=== PATIENT | female | born 1960 | race Caucasian/White ===

== ENCOUNTER 2020-11-19 11:55 | Outpatient (REF) | payer OTHER, SELFPAY ==
--- NOTE | ~2020-11-19 | MM_ITS ---
EXAMINATION: MM SCREENING DIGITAL BREAST TOMOSYNTHESIS, BILATERAL CLINICAL INFORMATION: Screening. Asymptomatic. The lifetime risk of breast cancer based on the Tyrer-Cuzick Model is 5%. COMPARISON: Mammography: 11/07/2019, 11/27/2015 TECHNIQUE: Digital breast tomosynthesis is performed in both the craniocaudal and mediolateral oblique views along with computer-aided detection (CAD). Synthesized 2D images are generated from the tomosynthesis. Additional left MLO view is provided. FINDINGS: There are scattered areas of fibroglandular density (ACR BI-RADS breast composition Category b). There are no significant masses, abnormal calcifications, or other abnormalities. Parenchymal pattern is similar to prior studies. Pacemaker generator overlies and obscures upper left axilla on MLO views. MM/MM tomosynthesis screening BI IMPRESSION: No mammographic evidence of malignancy. ASSESSMENT: BI-RADS 2: Benign RECOMMENDATION: Routine annual mammography screening. This patient's information was entered into a reminder system with a target due date for their next mammogram.
== END 2020-11-19 11:56 | disposition home or self-care (01) ==
LOC: HO.MAMMO 11:55
PROVIDERS: Visit Provider Internal Medicine
DX: Z12.31 Encounter for screening mammogram for malignant neoplasm of breast (principal)
CPT/HCPCS: 77063; 77067

== ENCOUNTER → 2021-03-16 12:45 | Outpatient (BNVA) | payer OTHER, SELFPAY | PROVIDERS: Visit Provider Internal Medicine Cardiovascular Disease ==

== ENCOUNTER → 2021-04-23 13:18 | Outpatient (BNVA) | payer OTHER, SELFPAY | PROVIDERS: Referring Provider Internal Medicine; Visit Provider Internal Medicine Cardiovascular Disease | DX: I25.5 Ischemic cardiomyopathy (principal); I25.10 Atherosclerotic heart disease of native coronary artery without angina pectoris; I50.9 Heart failure, unspecified; Z87.891 Personal history of nicotine dependence; Z95.1 Presence of aortocoronary bypass graft; Z95.810 Presence of automatic (implantable) cardiac defibrillator | CPT/HCPCS: 93005 ==

== ENCOUNTER → 2021-05-14 11:40 | Outpatient (REF) | payer OTHER, SELFPAY ==
--- NOTE | 2021-05-14 11:43 | CA_ITS ---
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 Severe LV systolic dysfunction with LVEF of 25-30% with regional wall motion abnormality in LAD territory consistent with prior myocardial infarction, with impaired relaxation filling pattern 2. Normal cardiac valvular Doppler 3. Normal RV systolic pressure 4. No pericardial effusion Findings Left Ventricle Normal left ventricular cavity size. There is normal left ventricular wall thickness. The left ventricular systolic function is severely decreased. The visually estimated ejection fraction is between 25-30%. There is evidence of regional wall motion abnormalities. Spectral Doppler is indicative of an impaired relaxation filling pattern. E/E prime ratio is between 8 and 15 consistent with indeterminate filling pressures. Wall Motion Rest Echo Findings The entire septum, the apex, apical anterior, apical inferior, and mid anterior segments are akinetic. All other scored wall segments showed normal motion. Right Ventricle Normal right ventricular cavity size and systolic function. There is an ICD wire seen in the right ventricle. Atria Both atria are normal in size. There is no evidence of interatrial shunt. Aortic Valve Normal aortic valve structure and function. There is no aortic valve stenosis. There is no aortic valve regurgitation. Mitral Valve Normal mitral valve structure and function. There is trace mitral valve regurgitation. There is no mitral valve stenosis. Tricuspid Valve Likely normal tricuspid valve structure and function. There is trace tricuspid valve regurgitation. The right ventricular systolic pressure is normal. The right ventricular systolic pressure is 23 mmHg. Normal right atrial pressure. There is no evidence of pulmonary hypertension. Great Vessels All visible segments of the aorta are normal in size. The pulmonary artery was not well visualized. Venous The inferior vena cava is normal in size and collapses greater than 50% with inspiration. Pericardium/Pleural There is no evidence of pericardial effusion. Prior Study Comparison No significant change compared to prior study dated: 03/04/2016. Measurements 2D Linear Measurements RVIDd: 1.95 RVIDd Index: 1.12 IVSd: 0.86 0.6-0.9/0.6-1.0 cm LVIDd: 5.33 3.9-5.3/4.2-5.9 cm LVIDd Index: 3.06 2.4-3.2/2.2-3.1 cm/m2 LVIDs: 3.89 2.0-3.6 cm LVPWd: 0.87 0.7-1.1 cm Ao Root: 2.80 2.1-3.5 cm LA Diam: 3.50 2.7-3.8/3.0-4.0 cm LAIDs Index: 2.01 1.5-2.3 cm/m2 LV Mass: 208.03 67-162/88-224 g LV Mass Index: 119.56 43-95/49-115 g/m2 LVOT Diam: 2.00 3.0+(-)1.3 cm 2D Systolic Function EF 4C: 37.50 >55% EF 2C: 44.10 >55% Mitral Valve MV Pk E: 0.66 MV PK A: 0.76 MV Decel Time: 221.00 E/A: 0.90 E'Lateral: 5.44 E'Medial: 7.83 E/E' Med: 8.40 E/E' Lat: 12.10 Aortic Valve AoV Pk Dewey: 1.26 AoV Mn Dewey: 0.88 AoV VTI: 0.27 AoV Pk Grad: 6.00 Aov Mn Grad: 4.00 EVIN Cont.VTI: 2.24 LVOT LVOT Pk Dewey: 0.77 LVOT Mn Dewey: 0.56 LVOT VTI: 0.19 LVOT Pk Grad: 2.00 LVOT Mn Grad: 1.00 LVOT Diam: 2.00 LVOT Area: 3.14 Diastolic Function MV Pk E: 0.66 MV Pk A: 0.76 E/A: 0.90 E'Medial: 7.83 E/E' Med: 8.40 E' Laterial: 5.44 E/E' Lat: 12.10 Right Ventricle TAPSE (mm): 13.00 TVS' Dewey: 9.60 Tricuspid Valve TR Pk Dewey: 2.23 TR Pk Grad: 20.00 RA Press: 3.00 RVSP: 23.00 Great Vessels Aorta Ao Root-2D: 2.80 2.0-3.7 cm Ao Asc: 2.80 2.1-3.4 cm Ao Arch: 2.40 Updated in Other Vendor System with Status of Final Kj Ortiz MD electronically signed on 05/15/2021 11:48:59 AM with status of Final
== END ==
LOC: HO.CARD 11:40
PROVIDERS: PCP Internal Medicine; Visit Provider Internal Medicine Cardiovascular Disease
DX: I25.5 Ischemic cardiomyopathy (principal)
CPT/HCPCS: 93306; Q9957

== ENCOUNTER 2021-05-30 10:04 | Outpatient (REF) | payer OTHER, SELFPAY ==
[2021-05-30 10:50] LABS: Hematocrit 39.8 % (37-47); Hemoglobin 13.4 g/dl (12.0-16.0); Mean Corpuscular HGB Conc 33.7 g/dl (31.0-35.0); Mean Corpuscular Hemoglobin 31.3 pg (27.0-33.0); Mean Platelet Volume 11.7 fL (9.4-12.3); Platelet Count 170 X10*3/uL (160-400); Red Blood Count 4.28 X10*6/uL (4.20-5.50); Red Cell Distribution Width 14.3 % (11.0-16.0); White Blood Count 6.5 X10*3/uL (4.8-10.8)
[2021-05-30 11:05] LABS: Anion Gap 12 (12-20); Blood Urea Nitrogen 12 mg/dL (9-16); Calcium 9.4 mg/dL (8.4-10.2); Carbon Dioxide 26 mmol/L (22-29); Chloride 106 mmol/L (96-108); Cholesterol 199 mg/dL; Estimated Glomerular Filt Rate > 60; Glucose Random 103 mg/dL (60-115); HDL Cholesterol 68 mg/dL; LDL Cholesterol Calculated 120 mg/dl; Potassium 4.8 mmol/L (3.3-5.1); Sodium 139 mmol/L (135-145); Triglycerides 58 mg/dL
== END 2021-05-30 10:05 | disposition home or self-care (01) ==
LOC: HO.LAB 10:04
PROVIDERS: PCP Internal Medicine; Visit Provider Internal Medicine Cardiovascular Disease
DX: I25.10 Atherosclerotic heart disease of native coronary artery without angina pectoris (principal)
CPT/HCPCS: 36415; 80048; 80061; 85027

== ENCOUNTER → 2021-06-04 13:24 | Outpatient (BNVA) | payer OTHER, SELFPAY | PROVIDERS: PCP Internal Medicine; Visit Provider Nurse Practitioner Family ==

== ENCOUNTER → 2021-09-03 12:51 | Outpatient (BNVA) | payer OTHER, SELFPAY | PROVIDERS: PCP Internal Medicine; Referring Provider Internal Medicine; Visit Provider Internal Medicine Cardiovascular Disease ==

== ENCOUNTER 2021-11-26 12:09 | Outpatient (REF) | payer OTHER, SELFPAY ==
--- NOTE | ~2021-11-26 | MM_ITS ---
EXAMINATION: MM SCREENING DIGITAL BREAST TOMOSYNTHESIS, BILATERAL CLINICAL INFORMATION: Screening. Asymptomatic. The lifetime risk of breast cancer based on the Tyrer-Cuzick Model is 5%. COMPARISON: Mammography: 11/19/2020, 11/07/2019, 11/27/2015 TECHNIQUE: Digital breast tomosynthesis is performed in both the craniocaudal and mediolateral oblique views along with computer-aided detection (CAD). Synthesized 2D images are generated from the tomosynthesis. FINDINGS: There are scattered areas of fibroglandular density (ACR BI-RADS breast composition Category b). There are no significant masses, abnormal calcifications, or other abnormalities. Breast tissue composition borders on heterogeneously dense. There is no developing density or interval architectural abnormality. Pacemaker generator overlies and obscures left axilla on MLO view. There are no significant changes. MM/MM tomosynthesis screening BI IMPRESSION: No mammographic evidence of malignancy. ASSESSMENT: BI-RADS 2: Benign RECOMMENDATION: Routine annual mammography screening. This patient's information was entered into a reminder system with a target due date for their next mammogram.
== END 2021-11-26 12:10 | disposition home or self-care (01) ==
LOC: HO.MAMMO 12:09
PROVIDERS: PCP Internal Medicine; Visit Provider Internal Medicine
DX: Z12.31 Encounter for screening mammogram for malignant neoplasm of breast (principal)
CPT/HCPCS: 77063; 77067

== ENCOUNTER 2021-12-31 11:41 | Outpatient (REF) | payer OTHER, SELFPAY ==
[2021-12-31 13:24] LABS: TSH reflex Free T4 2.27 uIU/mL (0.32-4.0)
[2021-12-31 13:41] LABS: Folate > 20.0 ng/mL (> or = 4.0); Vitamin B12 621 pg/mL (200-900)
[2022-01-06 13:51] LABS: Vitamin D 25-OH, D2 <4 ng/mL; Vitamin D 25-OH, D3 24 ng/mL; Vitamin D 25-OH, Total 24 ng/mL (30-100)
== END 2021-12-31 11:42 | disposition home or self-care (01) ==
LOC: HO.LAB 11:41
PROVIDERS: PCP Internal Medicine; Visit Provider Nurse Practitioner Acute Care
DX: E55.9 Vitamin D deficiency, unspecified (principal)
CPT/HCPCS: 36415; 82306; 82607; 82746; 84443

== ENCOUNTER 2022-03-13 07:36 | Outpatient (REF) | payer OTHER, SELFPAY ==
[2022-03-13 08:55] LABS: Alanine Aminotransferase 18 U/L (0-31); Anion Gap 12 (12-20); Aspartate Amino Transferase 20 U/L (5-31); Blood Urea Nitrogen 18 mg/dL (9-16); Calcium 9.6 mg/dL (8.4-10.2); Carbon Dioxide 28 mmol/L (22-29); Chloride 105 mmol/L (96-108); Cholesterol 159 mg/dL; Estimated Glomerular Filt Rate > 60; Glucose Random 96 mg/dL (60-115); HDL Cholesterol 72 mg/dL; LDL Cholesterol Calculated 78 mg/dl; Potassium 4.9 mmol/L (3.3-5.1); Sodium 140 mmol/L (135-145); Triglycerides 48 mg/dL
== END 2022-03-13 07:37 | disposition home or self-care (01) ==
LOC: HO.LAB 07:36
PROVIDERS: PCP Internal Medicine; Visit Provider Nurse Practitioner Family
DX: I25.10 Atherosclerotic heart disease of native coronary artery without angina pectoris (principal); I25.5 Ischemic cardiomyopathy
CPT/HCPCS: 36415; 80048; 80061; 84450; 84460

== ENCOUNTER → 2022-07-30 09:34 | Outpatient (REF) | payer OTHER, SELFPAY ==
--- NOTE | 2022-07-30 09:39 | CA_ITS ---
Transthoracic Echocardiogram Patient (Last, First, Middle): Hamida Venegas, Gender: Female Date of : 1960 Age: 61 Procedure Date: 07/30/2022 Procedure Type: Transthoracic Echocardiogram Location: OP Height: 162.56 cm Weight: 72.58 kg BSA: 1.78 m2 Heart Rate: 55 bpm BP: 120 / 75 mmHg Education Specialist: KIM Referring MD: Kj Ortiz MD Symptoms: I25.5 - Ischemic cardiomyopathy Study Quality: Poor/Contrast ECG Rhythm: Bradycardia Conclusions: - The left ventricular systolic function is severely decreased. The visually estimated ejection fraction is between 15-20%. - The anteroseptal wall, the apical anterior, apical inferior, and mid inferoseptal segments are akinetic. 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 - No obvious valvular pathology seen on this study. Findings Procedure Information Contrast agent, definity, is being given per protocol without apparent complications. Left Ventricle Normal left ventricular cavity size. There is normal left ventricular wall thickness. The left ventricular systolic function is severely decreased. The visually estimated ejection fraction is between 15-20%. There is evidence of regional wall motion abnormalities. Evidence suggests grade I (mild) diastolic dysfunction. No evidence of thrombus. Wall Motion Rest Echo Findings The anteroseptal wall, the apical anterior, apical inferior, and mid inferoseptal segments are akinetic. 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 Right Ventricle Normal right ventricular cavity size. There is low normal right ventricular systolic function. There is an ICD wire seen in the right ventricle. Atria Both atria are normal in size. Aortic Valve There is a normal trileaflet aortic valve. There is no aortic valve stenosis. There is no aortic valve regurgitation. Mitral Valve The mitral valve appears normal. There is no mitral valve regurgitation. There is no mitral valve stenosis. Pulmonic Valve The pulmonic valve is likely normal. Tricuspid Valve There is trace tricuspid valve regurgitation. There is no evidence of pulmonary hypertension. Great Vessels The aortic annulus, sinuses of valsalva, and asc aorta are normal in size. Venous The inferior vena cava is normal in size and collapses greater than 50% with inspiration. Pericardium/Pleural There is no evidence of pericardial effusion. Prior Study Comparison Changes noted compared to prior study dated: 05/14/2021. [place] looks aneurysmal. Recommendations, Care & Conclusions No obvious valvular pathology seen on this study. Measurements 2D Linear Measurements IVSd: 0.97 0.6-0.9/0.6-1.0 cm LVIDd: 4.90 3.9-5.3/4.2-5.9 cm LVIDd Index: 2.75 2.4-3.2/2.2-3.1 cm/m2 LVIDs: 3.94 2.0-3.6 cm LVPWd: 0.79 0.7-1.1 cm LA Diam: 3.60 2.7-3.8/3.0-4.0 cm LAIDs Index: 2.02 1.5-2.3 cm/m2 LV Mass: 185.15 67-162/88-224 g LV Mass Index: 104.01 43-95/49-115 g/m2 LVOT Diam: 2.10 3.0+(-)1.3 cm 2D Systolic Function EF 4C: 34.60 >55% EF 2C: 24.00 >55% EF BiP: 29.70 >55% Mitral Valve MV Pk E: 0.57 MV PK A: 0.72 MV Decel Time: 364.00 E/A: 0.80 E'Lateral: 4.68 E'Medial: 6.85 E/E' Med: 8.30 E/E' Lat: 12.20 PHT: 107.00 MVA PHT: 2.06 Decel Sullivan: 1.56 Aortic Valve AoV Pk Dewey: 1.05 AoV Mn Dewey: 0.78 AoV VTI: 0.25 AoV Pk Grad: 4.00 Aov Mn Grad: 3.00 EVIN Cont.VTI: 2.23 LVOT LVOT Pk Dewey: 0.76 LVOT Mn Dewey: 0.53 LVOT VTI: 0.16 LVOT Pk Grad: 2.00 LVOT Mn Grad: 1.00 LVOT Diam: 2.10 LVOT Area: 3.46 Diastolic Function MV Pk E: 0.57 MV Pk A: 0.72 E/A: 0.80 E'Medial: 6.85 E/E' Med: 8.30 E' Laterial: 4.68 E/E' Lat: 12.20 Right Ventricle TAPSE (mm): 18.50 TVS' Dewey: 8.43 Tricuspid Valve TR Pk Dewey: 1.59 TR Pk Grad: 10.00 RA Press: 3.00 RVSP: 13.00 Great Vessels Aorta Sinus of Valsalva: 3.20 2.0-3.5 cm Ao Asc: 3.10 2.1-3.4 cm Pulmonary Valve PV Pk Dewey: 0.68 Peak PV Grad: 2.00 Updated in Other Vendor System with Status of Final Paco Herrera MD electronically signed on 07/31/2022 1:04:35 PM with status of Final
== END ==
LOC: HO.CARD 09:34
PROVIDERS: PCP Internal Medicine; Visit Provider Internal Medicine Cardiovascular Disease
DX: I25.5 Ischemic cardiomyopathy (principal)
CPT/HCPCS: 93306; Q9957

== ENCOUNTER → 2022-09-15 12:35 | Outpatient (BNVA) | payer OTHER, SELFPAY | PROVIDERS: PCP Internal Medicine; Referring Provider Internal Medicine; Visit Provider Internal Medicine Cardiovascular Disease | DX: Z45.02 Encounter for adjustment and management of automatic implantable cardiac defibrillator (principal); I25.5 Ischemic cardiomyopathy; I25.10 Atherosclerotic heart disease of native coronary artery without angina pectoris | CPT/HCPCS: 93005 ==

== ENCOUNTER 2022-12-02 12:06 | Outpatient (REF) | payer OTHER, SELFPAY ==
--- NOTE | ~2022-12-02 | MM_ITS ---
EXAMINATION: MM SCREENING DIGITAL BREAST TOMOSYNTHESIS, BILATERAL CLINICAL INFORMATION: Screening. Asymptomatic. The lifetime risk of breast cancer based on the Tyrer-Cuzick Model is 9.5%. COMPARISON: Mammography: November 26, 2021 and studies dating back to November 27, 2015 TECHNIQUE: Digital breast tomosynthesis is performed in both the craniocaudal and mediolateral oblique views along with computer-aided detection (CAD). Synthesized 2D images are generated from the tomosynthesis. FINDINGS: The breasts are heterogeneously dense, which may obscure small masses (ACR BI-RADS breast composition Category c). There are no significant masses, abnormal calcifications, or other abnormalities. MM/MM tomosynthesis screening BI IMPRESSION: No significant changes from prior exam. ASSESSMENT: BI-RADS 1: Negative RECOMMENDATION: Routine annual mammography screening. This patient's information was entered into a reminder system with a target due date for their next mammogram.
== END 2022-12-02 12:07 | disposition home or self-care (01) ==
LOC: HO.MAMMO 12:06
PROVIDERS: Visit Provider Internal Medicine
DX: Z12.31 Encounter for screening mammogram for malignant neoplasm of breast (principal)
CPT/HCPCS: 77063; 77067

== ENCOUNTER 2023-04-11 12:22 | Outpatient (AMB) | payer OTHER, SELFPAY ==
--- NOTE | 2023-04-11 12:40 | A.OFFVIS_ITS ---
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 She is a 62 woman says has lot of stress at work and related that she is not sleeping well. She is having increasing fatigue and increasing exertional shortness of breath. No exertional chest pain. Denies any orthopnea, PND. She thinks all her symptoms are probably related to stress and she is getting panic attacks because of it. She is taking all her medications. She denies any palpitations, lightheadedness, syncope, ICD discharge. [facility]LY [facility] Medical History CAD (coronary artery disease) ICD (implantable cardioverter-defibrillator) in place Ischemic cardiomyopathy Primary insomnia Surgical History History of section History of nasal surgery History of tubal ligation Hx of CABG Family History Father Lung cancer Stroke Mother Diabetes Hypertension Maternal Aunt Cervical cancer Sister Uterine cancer Social History Housing: Apartment Alcohol intake: current Alcohol intake frequency: holidays/special occasions only Patient Tobacco Use Status: Former Tobacco user Second Hand Smoke Exposure: Yes service: No Current occupational status: employed Cognitive needs: No Hearing needs: No Vision needs: Yes Review of Systems Const Denies chills, Denies fatigue, Denies fever(s), Denies frequent falls, Denies weakness, Denies weight gain and Denies weight loss ENT Denies dizziness Card Denies chest pain, Denies leg edema, Denies lightheadedness, Denies palpitations, Denies dyspnea, Denies dyspnea on exertion, Denies orthopnea and Denies other (loss of consciousness) Resp Denies cough, Denies dyspnea and Denies dyspnea on exertion GI Denies hematochezia and Denies change in stool character Musc Denies abnormal gait, Denies muscle weakness, Denies numbness, Denies radiating pain into limb and Denies tingling Neuro Denies Abnormal speech present, Denies abnormal gait, Denies dizziness, Denies frequent falls, Denies numbness, Denies tingling and Denies weakness Endo Denies fatigue and Denies palpitations Physical Exam Vital Signs: Last Vital Signs Pulse 74 04/11/23 12:41 BP 110/70 04/11/23 12:41 BMI result Body Mass Index 29.5 Const General: cooperative, comfortable, no acute distress, alert, awake, Physically active and well groomed Orientation/consciousness: patient oriented x3 Neck Neck: Yes trachea midline, Yes supple and Yes no JVD Carotids: no bruits Chest Chest palpation & inspection: normal inspection of the chest and other (Well- healed sternotomy scar) Resp Effort & Inspection: normal respiratory effort Auscultation: clear to auscultation bilaterally Cardio Jugular venous distension: no JVD Palpation: abnormal PMI displaced PMI Rate: regular rate Rhythm: regular rhythm Heart sounds: S1 normal heart sound present, S2 normal heart sound present, no click, no gallops, no murmurs, no rubs and Other heart sounds present (Soft S4) Peripheral pulses: Peripheral pulses 2+ throughout GI Auscultation: normal bowel sounds Skin General skin exam: no rashes or lesions noted Neuro General: patient oriented x3 and no focal motor deficits Speech: No Abnormal speech present Extrem General: Yes no clubbing, cyanosis or edema Office Procedures Cardiac Device Check Cardiac Device Check Details: Single-chamber [employer] ICD in place. Programmed in VVI at 40 beats per minute. Pacing thresholds excellent. Pacing and shock lead impedance is stable. Ventricular sensing is excellent. One episode of nonsustained ventricular tachycardia noted. Battery life is at about 4 and half years [id number] Cardiac Device Check, single lead implantable defibrillator Procedure code (CPT) selection complete Assessment & Plan Assessment & Plan (1) SOB (shortness of breath) on exertion: Code(s): R06.02 - Shortness of breath Plan: Shortness of breath exertion which is new onset last 6 months without any overt signs of heart failure. Probably related to increased stress and lack of sleep and fatigue and deconditioning. However given her prior cardiac history will suggest exercise myocardial perfusion imaging to evaluate for graft patency. This will be done in near future. Further treatment based on the finding. (2) Ischemic cardiomyopathy: Code(s): I25.5 - Ischemic cardiomyopathy Plan: Severe ischemic cardiomyopathy without overt symptoms of heart failure. NYHA class 2 symptoms. Will discontinue lisinopril and switch her to valsartan therapy for a week and transition her to Entresto therapy. Continue metoprolol therapy. Both for neurohormonal modulation. Signs and symptoms of heart failure were discussed. Advised to call me with worsening symptoms. Importance of neurohormonal modulation was discussed. (3) CAD (coronary artery disease): Code(s): I25.10 - Atherosclerotic heart disease of [place] coronary artery without angina pectoris Plan: CAD with remote coronary bypass grafting. Currently having increasing symptoms of shortness of breath. Follow-up with stress myocardial perfusion imaging as above. Continue aspirin therapy. Continue aggressive blood pressure control. Continue high-intensity statin therapy with target goal LDL less than 70 mg/dL. Advised to maintain activity level and weight loss program. (4) ICD (implantable cardioverter-defibrillator) in place: Code(s): Z95.810 - Presence of automatic (implantable) cardiac defibrillator Plan: ICD in place for primary prevention. Working well. Reprogrammed for adequate function. Follow remotely in 3 months and follow up in the clinic in 6 months time. Follow-up remotely every month for heart failure. Will follow up in the clinic 6 months time, sooner p.r.n.. Thank you for allowing me to partake in her care Orders: Orders CA stress test Today I25.5 - Ischemic cardiomyopathy, R06.02 - Shortness of breath NM cardiolite stress test 2 Weeks R07.9 - Chest pain, unspecified Coding Level of Care Code Est Pt Level 4 (79181) Diagnoses SOB (shortness of breath) on exertion R06.02 Ischemic cardiomyopathy I25.5 CAD (coronary artery disease) I25.10 ICD (implantable cardioverter-defibrillator) in place Z95.810 CPT Codes Cardiac Device Check - Cardiac Device 4: 50198-[id number] Cardiac Device Check, single lead implantable defibrillator ([id number])
[2023-04-11 12:41] VITALS: BP 110/70; PULSE 74; BMI 29.5
== END 2023-04-11 13:01 | disposition home or self-care (01) ==
PROVIDERS: Visit Provider Internal Medicine Cardiovascular Disease
DX: R06.02 Shortness of breath (principal); I25.5 Ischemic cardiomyopathy; I25.10 Atherosclerotic heart disease of native coronary artery without angina pectoris; Z95.810 Presence of automatic (implantable) cardiac defibrillator
CPT/HCPCS: 93282; 99214

== ENCOUNTER → 2023-04-11 12:22 | Outpatient (BNVA) | payer OTHER, SELFPAY | PROVIDERS: Visit Provider Internal Medicine Cardiovascular Disease ==

== ENCOUNTER 2023-05-12 13:18 | Outpatient (REF) | payer OTHER, SELFPAY ==
[2023-05-12 14:53] LABS: Anion Gap 9 (12-20); Blood Urea Nitrogen 13 mg/dL (9-16); Calcium 9.5 mg/dL (8.4-10.2); Carbon Dioxide 27 mmol/L (22-29); Chloride 107 mmol/L (96-108); Estimated Glomerular Filt Rate > 60; Glucose Random 98 mg/dL (60-115); Sodium 139 mmol/L (135-145)
== END 2023-05-12 13:19 | disposition home or self-care (01) ==
LOC: HO.LAB 13:18
PROVIDERS: PCP Internal Medicine; Visit Provider Internal Medicine Cardiovascular Disease
DX: I25.5 Ischemic cardiomyopathy (principal)
CPT/HCPCS: 36415; 80048

== ENCOUNTER → 2023-06-03 08:32 | Outpatient (REF) | payer OTHER, SELFPAY ==
--- NOTE | ~2023-06-03 | NM_ITS ---
Myocardial perfusion study Indication: Chest pain to evaluate for myocardial ischemia Technique: The patient was brought in for a Lexiscan perfusion study on 06/03/2023. Patient performed low-level exercise and was injected 0.4 mg of Lexiscan intravenously. Within a minute of injection, 25 mCi of sestamibi was given intravenously. Images were obtained using the SPECT gamma camera interlaced with the gating device. Images were obtained in supine position. Resting perfusion study was performed on 06/06/2023. Patient was administered 25 mCi of sestamibi intravenously at rest. Images were then obtained in supine position. Images obtained with and without CT attenuation. Total DLP 86 mGy-cm. Images were processed with the software and compared side to side in short axis, horizontal long axis and vertical long axis views. Findings: The stress perfusion study showed non attenuated images show absent uptake in the apex, mid and distal anteroseptal, inferoapical rutherford of the LV myocardium and severely reduced uptake in the distal septum, distal anterior, moderately reduced uptake in the inferoseptum as well as mildly reduced uptake in the basal and mid anterior wall of the LV myocardium.. Images x-ray showed improved uptake in the basal and mid anterior wall of the LV myocardium. Remainder of the LV myocardium uptake is similar to in non attenuated images.. The gated study shows reduced LV systolic function with calculated LVEF of 25%. LV cavity is mildly to moderately dilated size. The gated study shows diffusely reduced wall thickening and contraction of all segments with absent uptake in the distal anterior, apical as well as the distal septum and lateral wall of the LV myocardium.. Resting study shows non attenuated images show improved uptake in the basal and mid anterior wall and minimally as well as minimally improved uptake in the inferoseptal wall of the LV myocardium. Attenuated corrected images show no changes in perfusion pattern except for the borderline area of the mid anterior wall.. Gating at rest reveals, apical, inferoapical as well as anteroapical and distal septal wall akinesis with ejection fraction at 22%. The findings are consistent with large territory of myocardial infarction of the distal anterior, apical, inferoapical, distal anteroseptal as well as distal septal wall of the LV myocardium with minimal emerson-infarct ischemia from mid anterior wall.. NM/NM cardiolite stress test Impression: 1. Myocardial perfusion imaging study shows large territory infarct in LAD territory with minimal emerson-infarct ischemia 2. Gated LVEF is 25% 3. Transient ischemic dilatation not present but LV cavity is dilated EKG is nondiagnostic for ischemia
--- NOTE | 2023-06-03 08:35 | CA_ITS ---
Acquisition Time: 2023-06-03 08:47:07 Total Exercise Time: 00:01:17 Test Indications: SOB Medications: SEE H Protocol: MURPHY Max HR: 125 BPM 80% of Pred: 156 BPM Max BP: 160/056 mmHG Max Work Load: 3.3 METS Exercise stress test exercise 1 min 17 sec of Murphy protocol achieving 78% MPHR, with request to stop due to leg weakness, without anginal symptoms, with isolated PVCs, with normotensive response to exercise, with nondiagnositic EKGs. Test changed to pharmacolgoical stress test with Lexiscan injection, while sitting and kicking her legs, without anginal symptoms, without arrhythmias, with normotensive response to injection, with nondiagnositic EKGs. Aminophylline 75mg IVP given to reverse Lexiscan. Nuclear images pending. Test reviewed with Dr. Ortiz. Some pseudo-normalization of T waves noted. Referred By: Kj Ortiz Overread By: RAGHAVENDRA FERNANDEZ
== END ==
LOC: HO.CARD 08:32
PROVIDERS: PCP Internal Medicine; Visit Provider Internal Medicine Cardiovascular Disease
DX: R07.9 Chest pain, unspecified (principal); I25.5 Ischemic cardiomyopathy; R06.02 Shortness of breath
CPT/HCPCS: 78452; 93017; A9500; J0280; J2785

== ENCOUNTER → 2023-06-03 08:51 | Outpatient (BNV) | payer OTHER, SELFPAY | PROVIDERS: PCP Internal Medicine; Visit Provider Internal Medicine Cardiovascular Disease | DX: I25.10 Atherosclerotic heart disease of native coronary artery without angina pectoris (principal) | CPT/HCPCS: 78452; 93016; 93018 ==

== ENCOUNTER 2023-10-10 12:48 | Outpatient (AMB) | payer OTHER, SELFPAY ==
--- NOTE | 2023-10-10 12:48 | MHC.OFFVIS ---
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 She has been doing well overall. She has currently not working. However on her med list she is currently off her beta-kb and statin for unclear reasons. She says that the pharmacy did not refill. She is taking other medications. She denies any prolonged palpitations or lightheadedness. Denies any exertional chest pain. Does complain of tiredness and fatigue. However denies any worsening shortness of breath, orthopnea, PND, leg edema. No ICD discharge. [facility] Medical History ICD (implantable cardioverter-defibrillator) in place Ischemic cardiomyopathy CAD (coronary artery disease) Primary insomnia Surgical History Hx of CABG History of tubal ligation History of nasal surgery History of section Family History Father Lung cancer Stroke Mother Diabetes Hypertension Maternal Aunt Cervical cancer Sister Uterine cancer Social History Housing: Apartment Alcohol intake: current Alcohol intake frequency: holidays/special occasions only Patient Tobacco Use Status: Former Tobacco user Second Hand Smoke Exposure: Yes service: No Current occupational status: employed Cognitive needs: No Hearing needs: No Vision needs: Yes Review of Systems Const Denies chills, Denies fatigue, Denies fever(s), Denies frequent falls, Denies weakness, Denies weight gain and Denies weight loss ENT Denies dizziness Card Denies chest pain, Denies leg edema, Denies lightheadedness, Denies palpitations, Denies dyspnea, Denies dyspnea on exertion, Denies orthopnea and Denies other (loss of consciousness) Resp Denies cough, Denies dyspnea and Denies dyspnea on exertion GI Denies hematochezia and Denies change in stool character Musc Denies abnormal gait, Denies muscle weakness, Denies numbness, Denies radiating pain into limb and Denies tingling Neuro Denies Abnormal speech present, Denies abnormal gait, Denies dizziness, Denies frequent falls, Denies numbness, Denies tingling and Denies weakness Endo Denies fatigue and Denies palpitations Physical Exam Vital Signs: Last Vital Signs Pulse 70 10/10/23 12:49 BP 110/72 10/10/23 12:49 BMI result Body Mass Index 29.5 Const General: cooperative, comfortable, no acute distress, alert, awake, Physically active and well groomed Orientation/consciousness: patient oriented x3 Neck Neck: Yes trachea midline, Yes supple and Yes no JVD Carotids: no bruits Chest Chest palpation & inspection: normal inspection of the chest and other (Well-healed sternotomy scar) Resp Effort & Inspection: normal respiratory effort Auscultation: clear to auscultation bilaterally Cardio Jugular venous distension: no JVD Palpation: abnormal PMI displaced PMI Rate: regular rate Rhythm: regular rhythm Heart sounds: S1 normal heart sound present, S2 normal heart sound present, no click, no gallops, no murmurs, no rubs and Other heart sounds present (Soft S4) Peripheral pulses: Peripheral pulses 2+ throughout GI Auscultation: normal bowel sounds Skin General skin exam: no rashes or lesions noted Neuro General: patient oriented x3 and no focal motor deficits Speech: No Abnormal speech present Extrem General: Yes no clubbing, cyanosis or edema Office Procedures Cardiac Device Check Cardiac Device Check Details: Single-chamber [place] [employer] ICD in place. Programmed in VVI at 40 beats per minute. Ventricular pacing thresholds excellent. Ventricular sensing is excellent. Pacing and shock lead impedance is stable. Battery life is at 4 years. Few high ventricular rate episode noted, from EGM a suggestive of possibly supraventricular origin. 27587-NF Cardiac Device Check, single lead implantable defibrillator Procedure code (CPT) selection complete EKG Details: EKG shows normal sinus rhythm with Q-wave from V1 to V5 suggestive of anterior myocardial infarction with T-wave inversion consistent with [place] related repolarization abnormality 48710-[id number], Complete Assessment & Plan Assessment & Plan (1) Ischemic cardiomyopathy: Code(s): I25.5 - Ischemic cardiomyopathy Plan: Severe ischemic cardiomyopathy. Importance of medical therapy was discussed. Will restart carvedilol 3.125 mg b.i.d.. Advised to monitor blood pressure at home. Continue Entresto therapy. Goal of neurohormonal modulation was discussed especially to prevent further worsening of her cardiac function and development of heart failure. She understands and agrees. Echocardiogram in near future will be pursued. (2) CAD (coronary artery disease): Code(s): I25.10 - Atherosclerotic heart disease of [place] coronary artery without angina pectoris Plan: CAD with large LAD territory myocardial infarction. She is also currently off statin therapy. Importance of statin therapy was discussed with her as well. Resume high-intensity statin therapy with rosuvastatin 40 mg daily. Follow-up lipid panel in 2 months time. Continue low-dose aspirin therapy for life. (3) ICD (implantable cardioverter-defibrillator) in place: Code(s): Z95.810 - Presence of automatic (implantable) cardiac defibrillator Plan: ICD in place for primary prevention. ICD is working well. Reprogrammed for adequate function. Will follow in the clinic in 6 months time. Thank you for allowing me to partake in the care. Follow up in the clinic in 6 months time Orders: Orders CA echo transthoracic complete Today I25.5 - Ischemic cardiomyopathy Lipid Panel 2 Months I25.10 - Atherosclerotic heart disease of [place] coronary artery without angina pectoris Basic Metabolic Panel 2 Months I25.5 - Ischemic cardiomyopathy Medications: New rosuvastatin (Crestor) 40 mg PO DAILY 30 tabs 6RF I25.5 - Ischemic cardiomyopathy carvedilol (Coreg) must administer with a meal/food 3.125 mg PO BID 60 tabs 6RF I25.5 - Ischemic cardiomyopathy Coding Level of Care Code Est Pt Level 4 (85223) Diagnoses Ischemic cardiomyopathy I25.5 CAD (coronary artery disease) I25.10 ICD (implantable cardioverter-defibrillator) in place Z95.810 CPT Codes Cardiac Device Check - Cardiac Device 4: [id number] Cardiac Device Check, single lead implantable defibrillator ([id number]) EKG - CPT: 52691-Wjyqszkpglgdtdapj, Complete ([id number])
[2023-10-10 12:49] VITALS: BP 110/72; PULSE 70; BMI 29.5
== END 2023-10-10 13:08 | disposition home or self-care (01) ==
LOC: HO.HCS 12:48
PROVIDERS: PCP Internal Medicine; Visit Provider Internal Medicine Cardiovascular Disease
DX: I25.5 Ischemic cardiomyopathy (principal); I25.10 Atherosclerotic heart disease of native coronary artery without angina pectoris; Z95.810 Presence of automatic (implantable) cardiac defibrillator
CPT/HCPCS: 93282; 99214

== ENCOUNTER → 2023-10-10 12:48 | Outpatient (BNVA) | payer OTHER, SELFPAY | PROVIDERS: PCP Internal Medicine; Visit Provider Internal Medicine Cardiovascular Disease | DX: I25.5 Ischemic cardiomyopathy (principal); I25.10 Atherosclerotic heart disease of native coronary artery without angina pectoris; Z79.82 Long term (current) use of aspirin; Z79.899 Other long term (current) drug therapy; Z45.02 Encounter for adjustment and management of automatic implantable cardiac defibrillator | CPT/HCPCS: 93005 ==

== ENCOUNTER → 2023-11-01 10:58 | Outpatient (REF) | payer OTHER, SELFPAY ==
--- NOTE | 2023-11-01 11:08 | CA_ITS ---
Transthoracic Echocardiogram Patient (Last, First, Middle): Hamida Calabrese, Gender: Female Date of : 1960 Age: 63 Procedure Date: 11/01/2023 Procedure Type: Transthoracic Echocardiogram Location: OP Height: 162.56 cm Weight: 74.39 kg BSA: 1.80 m2 Heart Rate: bpm BP: 110 / 70 mmHg Back Tender Paper Machine: HELGA Referring MD: Kj Ortiz MD Symptoms: I25.5 - Ischemic cardiomyopathy Study Quality: Adequate with contrast Conclusions: - The left ventricular systolic function is severely decreased. The calculated ejection fraction is 28% by biplane method. - The apical inferior, apical septum, mid inferoseptal, and mid anteroseptal segments are akinetic. 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 - No obvious valvular pathology seen on this study. Findings Procedure Information Contrast agent, definity, is being given per protocol without apparent complications. Left Ventricle Mildly increased left ventricular cavity size. There is normal left ventricular wall thickness. The left ventricular systolic function is severely decreased. The calculated ejection fraction is 28% by biplane method. There is evidence of regional wall motion abnormalities. Evidence suggests grade I (mild) diastolic dysfunction. Wall Motion Rest Echo Findings The apical inferior, apical septum, mid inferoseptal, and mid anteroseptal segments are akinetic. 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 Right Ventricle Normal right ventricular cavity size. There is mildly decreased right ventricular systolic function. Atria Both atria are normal in size. Aortic Valve There is a normal trileaflet aortic valve. There is no aortic valve stenosis. There is no aortic valve regurgitation. Mitral Valve The mitral valve appears normal. There is no mitral valve regurgitation. There is no mitral valve stenosis. Pulmonic Valve The pulmonic valve is likely normal. Tricuspid Valve There is trace tricuspid valve regurgitation. There is no evidence of pulmonary hypertension. Great Vessels The asc aorta is normal in size. Venous The inferior vena cava is normal in size and collapses greater than 50% with inspiration. Pericardium/Pleural There is a trivial pericardial effusion. Prior Study Comparison No significant change compared to prior study dated: 07/30/2022. Recommendations, Care & Conclusions No obvious valvular pathology seen on this study. Measurements 2D Linear Measurements IVSd: 0.87 0.6-0.9/0.6-1.0 cm LVIDd: 5.71 3.9-5.3/4.2-5.9 cm LVIDd Index: 3.17 2.4-3.2/2.2-3.1 cm/m2 LVIDs: 4.64 2.0-3.6 cm LVPWd: 0.95 0.7-1.1 cm LA Diam: 2.90 2.7-3.8/3.0-4.0 cm LAIDs Index: 1.61 1.5-2.3 cm/m2 LV Mass: 251.13 67-162/88-224 g LV Mass Index: 139.52 43-95/49-115 g/m2 LVOT Diam: 2.30 3.0+(-)1.3 cm 2D Systolic Function EF 4C: 18.50 >55% EF 2C: 35.10 >55% EF BiP: 27.80 >55% Mitral Valve MV Pk E: 0.63 MV PK A: 0.75 MV Decel Time: 213.00 E/A: 0.80 E'Lateral: 5.44 E'Medial: 5.11 E/E' Med: 12.40 E/E' Lat: 11.70 PHT: 62.00 MVA PHT: 3.55 Decel [place]: 2.98 Aortic Valve AoV Pk Dewey: 1.09 AoV Mn Dewey: 0.79 AoV VTI: 0.28 AoV Pk Grad: 5.00 Aov Mn Grad: 3.00 EVIN Cont.VTI: 2.95 LVOT LVOT Pk Dewey: 0.82 LVOT Mn Dewey: 0.55 LVOT VTI: 0.20 LVOT Pk Grad: 3.00 LVOT Mn Grad: 1.00 LVOT Diam: 2.30 LVOT Area: 4.15 Diastolic Function MV Pk E: 0.63 MV Pk A: 0.75 E/A: 0.80 E'Medial: 5.11 E/E' Med: 12.40 E' Laterial: 5.44 E/E' Lat: 11.70 Right Ventricle TAPSE (mm): 15.20 TVS' Dewey: 9.46 Tricuspid Valve TR Pk Dewey: 1.80 TR Pk Grad: 13.00 RA Press: 3.00 RVSP: 16.00 Great Vessels Aorta Sinus of Valsalva: 3.29 2.0-3.[address] [place]: 2.66 1.7-3.4 cm Ao Asc: 2.90 2.1-3.4 cm Updated in Other Vendor System with Status of Final Paco Herrera MD electronically signed on 11/03/2023 12:18:17 PM with status of Final
== END ==
LOC: HO.CARD 10:58
PROVIDERS: PCP Internal Medicine; Visit Provider Internal Medicine Cardiovascular Disease
DX: I25.5 Ischemic cardiomyopathy (principal)
CPT/HCPCS: 93306; Q9957

== ENCOUNTER → 2023-11-01 11:08 | Outpatient (BNV) | payer OTHER, SELFPAY | PROVIDERS: PCP Internal Medicine; Visit Provider Internal Medicine | DX: I25.5 Ischemic cardiomyopathy (principal) | CPT/HCPCS: 93306 ==

== ENCOUNTER 2023-12-08 11:54 | Outpatient (REF) | payer OTHER, SELFPAY ==
--- NOTE | ~2023-12-08 | MM_ITS ---
EXAMINATION: MM SCREENING DIGITAL BREAST TOMOSYNTHESIS, BILATERAL CLINICAL INFORMATION: Screening. Asymptomatic. COMPARISON: Mammography: 02/01/2023, 11/26/2021, 11/19/2020, 11/07/2019, 11/27/2015. TECHNIQUE: Digital breast tomosynthesis is performed in both the craniocaudal and mediolateral oblique views along with computer-aided detection (CAD). Synthesized 2D images are generated from the tomosynthesis. FINDINGS: The breasts are heterogeneously dense, which may obscure small masses (ACR BI-RADS breast composition Category c). Pacemaker obscures a portion of the left axilla on the left MLO. There are no suspicious masses, suspicious grouped calcifications, or areas of architectural distortion in either breast. The parenchymal pattern is stable from prior exams. No skin abnormalities. MM/MM tomosynthesis screening BI IMPRESSION: No mammographic evidence of malignancy. ASSESSMENT: BI-RADS BI-RADS 2 - Benign Findings RECOMMENDATION: Routine annual mammography screening. 1 year F/U This examination should not preclude the clinical evaluation of a suspicious palpable abnormality. This patient's information was entered into a reminder system with a target due date for their next mammogram.
== END 2023-12-08 11:55 | disposition home or self-care (01) ==
LOC: HO.MAMMO 11:54
PROVIDERS: PCP Internal Medicine; Visit Provider Internal Medicine
DX: Z12.31 Encounter for screening mammogram for malignant neoplasm of breast (principal)
CPT/HCPCS: 77063; 77067

== ENCOUNTER → 2023-12-08 12:00 | Outpatient (BNV) | payer OTHER, SELFPAY | PROVIDERS: PCP Internal Medicine; Visit Provider Radiology Diagnostic Radiology | DX: Z12.31 Encounter for screening mammogram for malignant neoplasm of breast (principal) | CPT/HCPCS: 77063; 77067 ==

== ENCOUNTER → 2024-01-03 14:22 | Outpatient (BNVA) | payer SELFPAY | PROVIDERS: PCP Internal Medicine; Visit Provider Physician Assistant Medical | DX: Z02.1 Encounter for pre-employment examination (principal); R76.11 Nonspecific reaction to tuberculin skin test without active tuberculosis ==

== ENCOUNTER 2024-02-23 12:52 | Outpatient (AMB) | payer OTHER, SELFPAY ==
--- NOTE | 2024-02-23 12:57 | A.OFFPC_ITS ---
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 Accompanied by: Self / Same As Patient Allergies No Known Allergies Allergy (Verified 02/23/24 13:26) Medication List - Last Reconciled 02/23/24 by Rosalie Juarez MD aspirin (Adult Low Dose Aspirin) 81 mg PO DAILY carvedilol (Coreg) 3.125 mg PO BID ddfpzsot-hdo-uswn-FA-vit K-lut 8 mg iron-400 mcg-50 mcg (Centrum Silver Women) 1 tab PO DAILY rosuvastatin (Crestor) 40 mg PO DAILY Tobacco use date assessed: 02/23/24 Fall risk assessment: No Falls in past year Last assessed Fall Risk: 02/23/24 Dental Screening Dental Screen Date: 02/23/24 Did you have a dental visit in the last 12 months?: No Did you have a dental problem in the last 6 months where you did not have access to dental care?: No Was dental information given to patient?: Patient has dentist HPI HPI Comments History of Present Illness Details This is a 63-year-old female with chronic systolic congestive heart failure that comes for her physical exam. Last echocardiogram was 11/15/2023 showing ejection fraction of 28%. She said she has not able to afford Entresto. I recommend to make financial adjustments to get it. Last mammogram was 12/14/2023 and was normal. Last colonoscopy was 2014 and due to family history they recommended to be repeated in 2019. Denies any chest pain or shortness on breath. Bone DXA scan was ordered. No need for Pap smear due to age. [facility] Medical History (Updated 02/23/24 @ 13:26 by Rosalie Juarez MD) Nonsustained ventricular tachycardia ICD (implantable cardioverter-defibrillator) in place Ischemic cardiomyopathy CAD (coronary artery disease) Primary insomnia Surgical History Hx of CABG History of tubal ligation History of nasal surgery History of section Family History (Updated 02/23/24 @ 12:59 by BOO Daly) Father Lung cancer Stroke Mother Diabetes Hypertension Maternal Aunt Cervical cancer Sister Uterine cancer Social History Housing: Apartment Alcohol intake: current Alcohol intake frequency: holidays/special occasions only Patient Tobacco Use Status: Former Tobacco user e-Cigarette/Vaping Use: Never Used Second Hand Smoke Exposure: Yes service: No Current occupational status: unemployed Cognitive needs: No Hearing needs: No Vision needs: Yes Questionnaire PHQ-9 Over the last 2 weeks, how often have you been bothered by any of the following problems? 1. Little interest or pleasure in doing things: not at all 2. Feeling down, depressed, or hopeless: several days 3. Trouble falling or staying asleep, or sleeping too much: several days 4. Feeling tired or having little energy: not at all 5. Poor appetite or overeating: not at all 6. Feeling bad about yourself - or that you are a failure or have let yourself or your family down: not at all 7. Trouble concentrating on things, such as reading the newspaper or watching television: not at all 8. Moving or speaking so slowly that other people could have noticed. Or the opposite - being so fidgety or restless that you have been moving around a lot more than usual: not at all 9. Thoughts that you would be better off or of hurting yourself in some way: not at all Total score: 2 Depression Screening Interpretation: Positive Depression Screening Follow-up: Existing condition and Follow-up Visit Requested Depression Screening Done: Yes 19574 - PHQ-9 Billing: Yes Source: Developed by Drs. Augusto Prakash, Shanti Huizar, William Bennett and colleagues, with an educational gonzales from [employer] Thrive Questionnaire Date Thrive assessed: 02/23/24 I am a: Patient What is your living situation today?: I have a steady place to live Within the past 12 months, did the food you bought not last and you didn't have the money to get more?: Never true Within the past 12 months, did you worry whether your food would run out before you got money to buy more?: Never true Do you have trouble paying for medicines?: No Do you have trouble getting transportation to medical appointments?: No Do you have trouble paying your heating and electricity bill?: No Do you have trouble taking care of your child, family member or friend?: No Do you have trouble with day-to-day activities such as bathing, preparing meals, shopping, managing finances, etc.?: No Are you currently unemployed and looking for a job?: No Are you interested in more education?: No Please select the resources that you would like help with: None Currently or been in a relationship where the following occur: no concerns reported THRIVE Score: 0 AUDIT C Alcohol Use Questionnaire (AUDIT-C) 1. How often do you have a drink containing alcohol?: Monthly or less 2. How many drinks containing alcohol do you have on a typical day when you are drinking?: 1 or 2 3. How often do you have six or more drinks on one occasion?: Never Total Score: 1 Score Reviewed/Action Taken: No SUZAN-7 AMB Questionnaire SUZAN-7 Date SUZAN - 7 assessed: 02/23/24 Feeling nervous, anxious, or on edge: 1 = Several days Not being able to stop or control worryin = Not at all Worrying too much about different things: 1 = Several days Trouble relaxin = Not at all Being so restless that it is hard to sit still: 0 = Not at all Becoming easily annoyed or irritable: 0 = Not at all Feeling afraid as if something awful might happen: 0 = Not at all Total SUZAN-7 score (0-4 normal; 5-9 mild; 10-14 moderate; 15-21 severe): 2 Source: Developed by Drs. Augusto Prakash, Shanti Huizar, William Bennett and colleagues, with an educational gonzales from [employer] SUZAN-7 Assessment Billing SUZAN-7 Assessment Tool: SUZAN-7 Assessment 53158 Review of Systems Const All systems reviewed & are unremarkable except as noted in HPI and below Card Denies chest pain at rest, Denies chest pain with activity, Denies edema, Denies irregular heart rhythm, Denies claudication, Denies dyspnea, Denies dyspnea on exertion, Denies orthopnea, Denies paroxysmal nocturnal dyspnea and Denies slow heart rate Resp Denies cough, Denies dyspnea and Denies dyspnea on exertion Physical exam (Primary Care) Vital Signs: Last Vital Signs BP 130/70 02/23/24 12:59 BMI result Body Mass Index 29.9 Tobacco/Smoking Status: Tobacco use Status Tobacco use date assessed 02/23/24 02/23/24 13:05 Patient Tobacco Use Status Former Tobacco user 02/23/24 13:05 e-Cigarette/Vaping Use Never Used 02/23/24 13:05 PHQ-9: PHQ-9 Score PHQ-9: Total score 2 02/23/24 13:13 Depression Screening Interpretation: Positive Depression Screening Follow-up: Existing condition and Follow-up Visit Requested Thrive Assessment: Date of Thrive Assessment Date Thrive assessed 02/23/24 02/23/24 13:05 Currently or been in a relationship where the following occur: no concerns reported Const Orientation/consciousness: patient oriented x3 HENMT Head: Yes normal to inspection, Yes normocephalic and Yes atraumatic Ears: external ears normal Eyes General: appearance normal, both eyes and all related structures Eyelids: Yes eyelids normal Conjunctivae: conjunctivae normal Neck Neck: Yes normal visual inspection and Yes supple Resp Effort & Inspection: normal respiratory effort Auscultation: clear to auscultation bilaterally Cardio Jugular venous distension: no JVD Rate: regular rate Rhythm: regular rhythm Heart sounds: S1 normal heart sound present and S2 normal heart sound present GI Inspection: Yes normal to inspection Palpation (GI): Soft to palpation and nontender Auscultation: normal bowel sounds Skin General skin exam: no rashes or lesions noted Neuro General: patient oriented x3 and no focal motor deficits Extrem General: Yes full ROM Psych Appearance: grossly normal Immunizations pneumoc 20-crissy conj-dip cr(PF) 0.5 mL IM syringe Performing Provider: Rosalie Juarez MD Performing Location[place] [facility] [place] [facility] Administered by: BOO Daly on 02/23/24 13:30 Dose Route Admin Location Dispensed Lot Number Expiration Date NDC Vending Machine Host/Hostess 0.5 mL IM Right Deltoid 0.5 mL [id number] 01/24/25 [employer] VIS Given Date VIS Provided VIS Publication Date 02/23/24 Single Vaccine 21 Eligibility Eligibility Date Funding Source Not VF Eligible 02/23/24 Private tetanus-diphtheria toxoids-Td 2 Lf unit-2 Lf unit/0.5 mL IM suspension Performing Provider: Rosalie Juarez MD [facility] Administered by: BOO Daly on 02/23/24 13:30 Dose Route Admin Location Dispensed Lot Number Expiration Date NDC Vending Machine Host/Hostess 0.5 mL IM Left Deltoid 0.5 mL [id number] 11/05/24 [id number] [employer] VIS Given Date VIS Provided VIS Publication Date 02/23/24 Single Vaccine 21 Eligibility Eligibility Date Funding Source Not VFC Eligible 02/23/24 [facility] funds Assessment and Plan Assessment & Plan (1) Physical exam: Code(s): Z00.00 - Encounter for general adult medical examination without abnormal findings Plan: Repeat in a year. (2) Chronic systolic (congestive) heart failure: Code(s): I50.22 - Chronic systolic (congestive) heart failure Plan: Continue carvedilol. Follow-up with Cardiology. The goal is to not gain 5 lb in a week. Orders: Orders XR DEXA axial skeleton Today N95.9 - Unspecified menopausal and perimenopausal disorder Vitamin D 25-OH Total Today E55.9 - Vitamin D deficiency, unspecified Lipid Panel Today E78.5 - Hyperlipidemia, unspecified NT-proBNP Today I50.22 - Chronic systolic (congestive) heart failure T Spot TB Today Z11.1 - Encounter for screening for respiratory tuberculosis Comprehensive [place]. Panel Fast Today Z00.00 - Encounter for general adult medical examination without abnormal findings Complete Blood Count Auto Diff Today D64.9 - Anemia, unspecified IRON PROFILE Today D64.9 - Anemia, unspecified Referrals Open Access Screening Colonoscopy Referral Z12.11 - Encounter for screening for malignant neoplasm of colon Coding Level of Care Code Est Pt Prev Care >65y(64133) Diagnoses Physical exam Z00.00 Chronic systolic (congestive) heart failure I50.22 Additional Codes SUZAN-7 Assessment Billing - SUZAN-7 Assessment Tool: SUZAN-7 Assessment 58999 ([id number]) Time Spent (min) 35
[2024-02-23 12:59] VITALS: BP 130/70; BMI 29.9
== END 2024-02-23 13:35 | disposition home or self-care (01) ==
PROVIDERS: PCP Internal Medicine; Visit Provider Internal Medicine
DX: Z23 Encounter for immunization (principal); Z00.00 Encounter for general adult medical examination without abnormal findings; I50.22 Chronic systolic (congestive) heart failure
CPT/HCPCS: 90471; 90472; 90677; 90714; 99397

== ENCOUNTER 2024-03-28 08:42 | Outpatient (REF) | payer OTHER, SELFPAY ==
--- NOTE | ~2024-03-28 | MM_ITS ---
EXAMINATION: BONE DENSITOMETRY CLINICAL INDICATION: Menopause. COMPARISON: This is the patient's baseline examination. TECHNIQUE: Using a [employer]raceway DXA System (software version: 13.1) manufactured by [employer], dual-energy x-ray absorptiometry was performed of the lumbar spine and left hip. The images are of good technical quality. Summary results are attached. FINDINGS: LEFT FEMUR, NECK: BMD 0.735 g/cm2, Z-score -1.0, T-score -2.2, osteopenia. LEFT FEMUR, TOTAL: BMD 0.740 g/cm2, Z-score -1.2, T-score -2.1, osteopenia. AP SPINE L1-L2 (excluding L3 and L4): The data of L1-L4 has been changed to exclude the L3 and L4 vertebral bodies, because degenerative sclerosis at these levels may cause overestimation of lumbar spine density. BMD 1.005 g/cm2, Z-score -0.2, T-score -1.3, osteopenia. IDENTIFIED RISK FACTORS: Menopause, dementia, family history (parent hip fracture). HISTORY OF FRACTURE: None listed. MEDICATIONS: Multivitamin. MM/XR DEXA axial skeleton IMPRESSION: 1. DIAGNOSIS: Osteopenia based on the lowest T-score value of -2.2 in the femoral neck applying World Health Organization criteria. 2. 10-YEAR FRACTURE RISK PREDICTION, FRAX: Major osteoporotic fracture (clinical spine, forearm, hip or shoulder) 11.9%. Hip fracture 1.2%. 3. Treatment Recommendations: NOF guidelines recommend consideration for treatment in postmenopausal women and men age 50 and older presenting with the following: -A hip or vertebral (clinical or morphometric) fracture. -T-score less than or equal to -2.5 at the femoral neck or spine after appropriate evaluation to exclude secondary causes. -Low bone mass at the hip or spine and a 10-year fracture probability by FRAX of greater than or equal to 3% for hip fracture or greater than or equal to 20% for major osteoporotic fracture based on the [place] adapted WHO algorithm. 4. Other Recommendations: All treatment decisions require clinical judgment and consideration of individual patient factors, including patient preferences, comorbidities, previous drug use, risk factors not captured in the FRAX model (e.g. frailty, falls, vitamin D deficiency, increased bone turnover, interval significant decline in bone density) and possible under or overestimation of fracture risk by FRAX. Additional medical evaluation for secondary cause of low bone mineral density may be appropriate. FUTURE SCAN RECOMMENDATION: People with diagnosed cases of osteoporosis or at high risk for fracture should have regular bone mineral density tests. For patients eligible for Medicare, routine testing is allowed once every 2 years. The testing frequency can be increased to one year for patients who have rapidly progressing disease, those who are receiving or discontinuing medical therapy to restore bone mass, or have additional risk factors.
== END 2024-03-28 08:43 | disposition home or self-care (01) ==
LOC: HO.MAMMO 08:42
PROVIDERS: PCP Internal Medicine; Visit Provider Internal Medicine
DX: Z13.820 Encounter for screening for osteoporosis (principal); Z78.0 Asymptomatic menopausal state
CPT/HCPCS: 77080

== ENCOUNTER 2024-04-09 12:18 | Outpatient (AMB) | payer OTHER, SELFPAY ==
--- NOTE | 2024-04-09 12:32 | MHC.OFFVIS ---
Vital Signs 04/09/24 12:33 Height 5 ft 4 in Weight 171 lb 15.369 oz BMI 29.5 BP 120/76 Blood Pressure Location Lt brachial Position Sitting Pulse 64 Intake Visit Reasons: 6 mth w/ [place] [facility] Intake Note: 6 month follow-up with 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 She has symptoms of exertional shortness of breath when she climbs a flight of stairs, NYHA class 2. She denies any progressive worsening shortness of breath. Although she says she does not participate in regular physical activity as she is very busy tending to her family and/or working. 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 She denies any orthopnea, PND. She denies any leg edema, abdominal distension. No lightheadedness, syncope, palpitations, ICD discharge. No exertional chest pain. Takes her current medications. [facility] Medical History Nonsustained ventricular tachycardia ICD (implantable cardioverter-defibrillator) in place Ischemic cardiomyopathy CAD (coronary artery disease) Primary insomnia Surgical History Hx of CABG History of tubal ligation History of nasal surgery History of section Family History Father Lung cancer Stroke Mother Diabetes Hypertension Maternal Aunt Cervical cancer Sister Uterine cancer Social History Housing: Apartment Alcohol intake: current Alcohol intake frequency: holidays/special occasions only Patient Tobacco Use Status: Former Tobacco user e-Cigarette/Vaping Use: Never Used Second Hand Smoke Exposure: Yes service: No Current occupational status: unemployed Cognitive needs: No Hearing needs: No Vision needs: Yes Review of Systems Const Denies chills, Denies fatigue, Denies fever(s), Denies frequent falls, Denies weakness, Denies weight gain and Denies weight loss ENT Denies dizziness Card Denies chest pain, Denies leg edema, Denies lightheadedness, Denies palpitations, Denies dyspnea, Denies dyspnea on exertion, Denies orthopnea and Denies other (loss of consciousness) Resp Denies cough, Denies dyspnea and Denies dyspnea on exertion GI Denies hematochezia and Denies change in stool character Musc Denies abnormal gait, Denies muscle weakness, Denies numbness, Denies radiating pain into limb and Denies tingling Neuro Denies Abnormal speech present, Denies abnormal gait, Denies dizziness, Denies frequent falls, Denies numbness, Denies tingling and Denies weakness Endo Denies fatigue and Denies palpitations Physical Exam Vital Signs: Last Vital Signs Pulse 64 04/09/24 12:33 BP 120/76 04/09/24 12:33 BMI result Body Mass Index 29.5 Const General: cooperative, comfortable, no acute distress, alert, awake, Physically active and well groomed Orientation/consciousness: patient oriented x3 Neck Neck: Yes trachea midline, Yes supple and Yes no JVD Carotids: no bruits Chest Chest palpation & inspection: normal inspection of the chest and other (Well-healed sternotomy scar) Resp Effort & Inspection: normal respiratory effort Auscultation: clear to auscultation bilaterally Cardio Jugular venous distension: no JVD Palpation: abnormal PMI displaced PMI Rate: regular rate Rhythm: regular rhythm Heart sounds: S1 normal heart sound present, S2 normal heart sound present, no click, no gallops, no murmurs, no rubs and Other heart sounds present (Soft S4) Peripheral pulses: Peripheral pulses 2+ throughout GI Auscultation: normal bowel sounds Skin General skin exam: no rashes or lesions noted Neuro General: patient oriented x3 and no focal motor deficits Speech: No Abnormal speech present Extrem General: Yes no clubbing, cyanosis or edema Office Procedures Cardiac Device Check Cardiac Device Check Details: Single-chamber ObjectVideo ICD in place. Programmed in VVI at 40 beats per minute. Battery life is greater than 3 and half years. Pacing thresholds adequate. Pacing and shock lead impedance is stable. Ventricular sensing is excellent. Six episodes of nonsustained VT noted 1 of them with EGMs suggestive of 5 beat nonsustained VT the other 1 SVT. [id number] Cardiac Device Check, single lead implantable defibrillator Procedure code (CPT) selection complete Assessment & Plan Assessment & Plan (1) Ischemic cardiomyopathy: Code(s): I25.5 - Ischemic cardiomyopathy Category: Medical Plan: Severe ischemic cardiomyopathy LAD territory wall motion abnormality consistent with prior myocardial infarction. Clinically having NYHA class 2 symptoms mostly due to deconditioning I think. I have advised her to increase her activity level gradually. She is only on neurohormonal modulation with carvedilol. Will start her on low-dose valsartan 40 mg b.i.d.. Advised to monitor blood pressure at home maintain a log. Advised to call me with any side effects especially lightheadedness or low blood pressure. Check BMP next week. Signs and symptoms of heart failure were discussed. Importance of medical therapy was discussed. Importance of exercise was discussed. She was very emotional as she says she can not find time for herself. I have encouraged to increase activity level gradually. Can consider phase 2 cardiac rehabilitation. (2) CAD (coronary artery disease): Code(s): I25.10 - Atherosclerotic heart disease of [place] coronary artery without angina pectoris Category: Medical Plan: CAD with prior myocardial infarction status post three-vessel coronary bypass grafting about 10 years ago. Myocardial perfusion imaging 2. Years ago showed old myocardial infarction without any significant reversible ischemia. She has currently not having any ischemic symptoms. Continue low-dose aspirin therapy. Continue aggressive blood pressure control. Continue high-intensity statin therapy. Advised lipid panel next week. Target goal LDL closer to 60 mg/dL. (3) ICD (implantable cardioverter-defibrillator) in place: Code(s): Z95.810 - Presence of automatic (implantable) cardiac defibrillator Category: Medical Plan: ICD in place for primary prevention. Will follow up in the clinic in 6 months time, sooner p.r.n.. Will also monitor remotely. Thank you for allowing me to partake in his care. Orders: Orders Lipid Panel Today I25.10 - Atherosclerotic heart disease of [place] coronary artery without angina pectoris, I25.5 - Ischemic cardiomyopathy Basic Metabolic Panel 1 Week I25.5 - Ischemic cardiomyopathy Complete Blood Count no Diff Today I25.5 - Ischemic cardiomyopathy B Type Natriuretic Peptide Today I25.5 - Ischemic cardiomyopathy Medications: New valsartan 40 mg PO BID 60 tabs 5RF Coding Level of Care Code Est Pt Level 4 (41567) Diagnoses Ischemic cardiomyopathy I25.5 CAD (coronary artery disease) I25.10 ICD (implantable cardioverter-defibrillator) in place Z95.810 CPT Codes Cardiac Device Check - Cardiac Device 4: [id number] Cardiac Device Check, single lead implantable defibrillator ([id number])
[2024-04-09 12:33] VITALS: BP 120/76; PULSE 64; BMI 29.5
== END 2024-04-09 12:53 | disposition home or self-care (01) ==
PROVIDERS: PCP Internal Medicine; Visit Provider Internal Medicine Cardiovascular Disease
DX: I25.5 Ischemic cardiomyopathy (principal); I25.10 Atherosclerotic heart disease of native coronary artery without angina pectoris; Z95.810 Presence of automatic (implantable) cardiac defibrillator
CPT/HCPCS: 93282; 99214

== ENCOUNTER → 2024-04-09 12:18 | Outpatient (BNVA) | payer OTHER, SELFPAY | PROVIDERS: PCP Internal Medicine; Visit Provider Internal Medicine Cardiovascular Disease ==

== ENCOUNTER 2024-07-02 16:01 | Outpatient (AMB) | payer OTHER, SELFPAY ==
[2024-07-02 16:10] VITALS: BP 126/72; BMI 27.6
--- NOTE | 2024-07-02 16:10 | MHC.PC.OV ---
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 Accompanied by: Self / Same As Patient Allergies No Known Allergies Allergy (Verified 07/02/24 16:31) Medication List - Last Reconciled 07/02/24 by Rosalie Juarez MD aspirin (Adult Low Dose Aspirin) 81 mg PO DAILY carvedilol (Coreg) 3.125 mg PO BID tofoweeb-jng-cmxa-FA-vit K-lut 8 mg iron-400 mcg-50 mcg (Centrum Silver Women) 1 tab PO DAILY rosuvastatin (Crestor) 40 mg PO DAILY valsartan 40 mg PO BID Tobacco use date assessed: 02/23/24 Fall risk assessment: No Falls in past year Last assessed Fall Risk: 07/02/24 Dental Screening Dental Screen Date: 02/23/24 HPI HPI Comments History of Present Illness Details This is a 63-year-old female with hypertension, chronic systolic congestive heart failure and osteopenia that complains of left shoulder pain that started few months ago. No previous trauma. Has limited range of motion in elevation and abduction. Will be referred to physical therapy, order x-rays and referred to Ortho. Blood pressure stable. Has not gain 5 lb in a week and congestive heart failure is follow by cardiology. DEXA scan 2023 shows osteopenia and takes calcium with vitamin-D for that matter. [facility] Medical History (Updated 07/02/24 @ 20:01 by Rosalie Juarez MD) Nonsustained ventricular tachycardia ICD (implantable cardioverter-defibrillator) in place Ischemic cardiomyopathy CAD (coronary artery disease) Primary insomnia Surgical History Hx of CABG History of tubal ligation History of nasal surgery History of section Family History Father Lung cancer Stroke Mother Diabetes Hypertension Maternal Aunt Cervical cancer Sister Uterine cancer Social History Housing: Apartment Alcohol intake: current Alcohol intake frequency: holidays/special occasions only Patient Tobacco Use Status: Former Tobacco user e-Cigarette/Vaping Use: Never Used Second Hand Smoke Exposure: Yes service: No Current occupational status: unemployed Cognitive needs: No Hearing needs: No Vision needs: Yes Questionnaire Thrive Questionnaire Date Thrive assessed: 02/23/24 Are you currently unemployed and looking for a job?: No SUZAN-7 AMB Questionnaire SUZAN-7 Date SUZAN - 7 assessed: 02/23/24 Source: Developed by Drs. Augusto Prakash, Shanti Huizar, William Bennett and colleagues, with an educational gonzales from [employer]. Review of Systems Const All systems reviewed & are unremarkable except as noted in HPI and below Card Denies chest pain at rest, Denies chest pain with activity, Denies edema, Denies irregular heart rhythm, Denies claudication, Denies dyspnea, Denies dyspnea on exertion, Denies orthopnea, Denies paroxysmal nocturnal dyspnea and Denies slow heart rate Resp Denies cough, Denies dyspnea and Denies dyspnea on exertion GI Denies abdominal pain, Denies change in bowel habits, Denies excessive flatus, Denies nausea and Denies vomiting Musc Reports limited range of motion Physical exam (Primary Care) Vital Signs: Last Vital Signs BP 126/72 07/02/24 16:10 BMI result Body Mass Index 27.6 Tobacco/Smoking Status: Tobacco use Status Tobacco use date assessed 02/23/24 07/02/24 16:13 Patient Tobacco Use Status Former Tobacco user 07/02/24 16:13 e-Cigarette/Vaping Use Never Used 07/02/24 16:13 Thrive Assessment: Date of Thrive Assessment Date Thrive assessed 02/23/24 07/02/24 16:13 Resp Effort & Inspection: normal respiratory effort Auscultation: clear to auscultation bilaterally Cardio Jugular venous distension: no JVD Rate: regular rate Rhythm: regular rhythm Heart sounds: S1 normal heart sound present and S2 normal heart sound present Extrem Left upper extremity: shoulder/upper arm Details: abnormal ROM Details: pain with active ROM Details: in ABduction, in extension and external rotation- Office Procedures Flu Questionnaire Does the patient have a severe egg allergy?: No Does the patient have severe life threatening allergies?: No Does the patient have a fever or illness today?: No Has the patient ever had Guillain-Laura Syndrome?: No Has the patient ever had any past reaction to a flu shot?: No Immunizations Fluarix Triv [id number] (PF) 45 mcg (15 mcg x 3)/0.5 mL IM syringe Performing Provider: Rosalie Juarez MD [facility] Administered by: BOO Daly on 07/02/24 16:43 Dose Route Admin Location Dispensed Lot Number Expiration Date NDC Rubber Thread Spooler 0.5 mL IM Right Deltoid 0.5 mL [id number] 03/25/25 [id number] VIS Given Date VIS Provided VIS Publication Date 07/02/24 Single Vaccine 24 Eligibility Eligibility Date Funding Source Not [facility] Eligible 07/02/24 Private Coding Level of Care Code Est Pt Level 4 (91306) Complex EM visit Add On G2211 Diagnoses Chronic systolic (congestive) heart failure I50.22 Left shoulder pain M25.512 Hypertension I10 Osteopenia M85.80 Time Spent (min) 23 Assessment & Plan Assessment & Plan (1) Chronic systolic (congestive) heart failure: Code(s): I50.22 - Chronic systolic (congestive) heart failure Category: Medical Plan: Continue carvedilol. The goal is to not gain 5 lb in a week. (2) Left shoulder pain: Code(s): M25.512 - Pain in left shoulder Category: Medical Plan: X-ray ordered. Start physical therapy. Referred to Ortho. (3) Hypertension: Code(s): I10 - Essential (primary) hypertension Category: Medical Plan: Continue valsartan. Blood pressure goal is equal or less than 130/80. (4) Osteopenia: Code(s): M85.80 - Other specified disorders of bone density and structure, unspecified site Category: Medical Plan: Continue calcium with vitamin-D. Orders: Orders PT Evaluation and Treatment Today M25.512 - Pain in left shoulder Influenza [id number] Immunization Today Z23 - Encounter for immunization XR shoulder LT min 2V Today M25.512 - Pain in left shoulder Referrals Orthopedics Referral M25.512 - Pain in left shoulder Medications: New calcium carbonate-vitamin D3 500 mg-10 mcg (400 unit) (Oyster Shell Calcium-Vitamin D3) 1 tab PO BID 180 tabs 0RF 90 days
== END 2024-07-02 16:42 | disposition home or self-care (01) ==
PROVIDERS: PCP Internal Medicine; Visit Provider Internal Medicine
DX: I50.22 Chronic systolic (congestive) heart failure (principal); M25.512 Pain in left shoulder; I10 Essential (primary) hypertension; M85.80 Other specified disorders of bone density and structure, unspecified site; Z23 Encounter for immunization

== ENCOUNTER → 2024-07-02 16:01 | Outpatient (BNVA) | payer OTHER, SELFPAY | PROVIDERS: PCP Internal Medicine; Visit Provider Internal Medicine | DX: I11.0 Hypertensive heart disease with heart failure (principal); I50.22 Chronic systolic (congestive) heart failure; M25.512 Pain in left shoulder; M85.80 Other specified disorders of bone density and structure, unspecified site; Z79.899 Other long term (current) drug therapy; Z23 Encounter for immunization | CPT/HCPCS: 90471; 90656 ==

== ENCOUNTER 2024-08-01 11:39 | Outpatient (REF) | payer OTHER, SELFPAY | END 2024-08-01 11:40 | disposition home or self-care (01) | LOC: HO.HOSX 11:39 | PROVIDERS: Visit Provider Physician Assistant | DX: M25.512 Pain in left shoulder (principal) | CPT/HCPCS: 73030 ==

== ENCOUNTER 2024-08-01 13:50 | Outpatient (AMB) | payer OTHER, SELFPAY ==
--- NOTE | 2024-08-01 14:05 | MHC.OFFVIS ---
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 Patient reports her pain has been present for about a month that has been getting worse and traveling down to her elbow. She will have stiffness and swelling in her elbow. No previous tx. Denies injury. Finds relief with Advil however this causes upset stomach. 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 She denies any injury to her shoulder. She states she has worsening pain and weakness in her left shoulder that radiates down to her elbow. Her pain is aggravated with reaching back and lifting. She also experiences stiffness in her elbow and swelling. She denies any pain at night. She has not had any treatment in the past. [facility] Medical History Nonsustained ventricular tachycardia ICD (implantable cardioverter-defibrillator) in place Ischemic cardiomyopathy CAD (coronary artery disease) Primary insomnia Surgical History Hx of CABG History of tubal ligation History of nasal surgery History of section Family History Father Lung cancer Stroke Mother Diabetes Hypertension Maternal Aunt Cervical cancer Sister Uterine cancer Social History Housing: Apartment Alcohol intake: current Alcohol intake frequency: holidays/special occasions only Patient Tobacco Use Status: Former Tobacco user e-Cigarette/Vaping Use: Never Used Second Hand Smoke Exposure: Yes Substance Use Type: Marijuana service: No Current occupational status: employed 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[employer], 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 Cognitive needs: No Hearing needs: No Vision needs: Yes Review of Systems Const All systems reviewed & are unremarkable except as noted in HPI and below Physical Exam Vital Signs: BMI result Body Mass Index 27.6 Const General: cooperative, healthy appearing, comfortable, no acute distress, well developed and alert Orientation/consciousness: patient oriented x3 HEENT Head: Yes normal to inspection, Yes normocephalic and Yes atraumatic Eyes General: appearance normal, both eyes and all related structures Resp Effort & Inspection: normal respiratory effort and able to speak in complete sentences Cardio Rate: regular rate Peripheral pulses: Peripheral pulses 2+ throughout GI Palpation (GI): Soft to palpation Skin Lesions: no lesions Rashes: no rashes Neuro General: patient oriented x3 Extrem Other: Left shoulder: Normal to inspection. Tenderness over the bicipital groove and along the deltoid region of the shoulder. Forward flexion to 175, external rotation to 90, internal rotation to S1. 5/5 RTC strength. Positive [place] and cross body abduction. NVI. Results Reviewed Results Reviewed: Xrays were obtained in the office today and personally reviewed by me of the left shoulder show well preserved joint space Assessment & Plan Assessment & Plan (1) Left shoulder tendonitis: Code(s): M77.8 - Other enthesopathies, not elsewhere classified Category: Medical Plan We discussed options which include PT, NSAIDs and injections. The patient will defer on the injection today and proceed with PT and NSAIDs. She was also given a prescription for Celebrex in the office today. If symptoms persist, she will contact me for an injection, otherwise, PRN. Orders: Orders XR shoulder LT min 2V Today M25.512 - Pain in left shoulder PT Evaluation and Treatment Today M77.8 - Other enthesopathies, not elsewhere classified Medications: New celecoxib (Celebrex) 200 mg PO BID 60 caps 3RF 30 days Patient Instructions: Scribed for Ta-Ninfa Moulton PA-C, by Wang Wyatt director of graduate medical education, on 08/01/2024 at 2:00 PM EST.? I, Amna Moulton PA-C, have personally reviewed and agree with the information entered by the scribe. Coding Level of Care Code New Pt Level 3 (99447) Complex EM visit Add On G2211 Diagnoses Left shoulder tendonitis M77.8
[2024-08-01 14:06] VITALS: BMI 27.6
== END 2024-08-01 14:43 | disposition home or self-care (01) ==
LOC: HO.HOS 13:50
PROVIDERS: PCP Internal Medicine; Visit Provider Physician Assistant
DX: M77.8 Other enthesopathies, not elsewhere classified (principal)
CPT/HCPCS: 99203; G2211

== ENCOUNTER → 2024-08-01 13:52 | Outpatient (BNV) | payer OTHER, SELFPAY | PROVIDERS: Visit Provider Radiology Diagnostic Radiology | DX: M25.512 Pain in left shoulder (principal) | CPT/HCPCS: 73030 ==

== ENCOUNTER 2024-08-02 12:48 | Outpatient (RCR) | payer OTHER, SELFPAY ==
--- NOTE | 2024-08-02 15:53 | MHC.PT.EP ---
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 Pt is deemed an appropriate candidate to receive skilled PT services to address their physical impairments in order to improve their functional ability. Frequency and Duration: The patient will be seen 1 x/ wk x 5 wks. Short Term Goals: Initiate home program. Improve Baseline pain to < 6/10; initial 9/10. Applications Administrator Goals: Improve L shoulder flexion AROM to at least 165 degrees. I with Home program. Pt will be able to reach high shelves with at most 4/10 difficulty; initial: 9/10. Pt will improve SPADI outcome measure by at least 13 points. Pt will improve L shoulder flexion MMT by at least 1/2 MMT grade. Treatment Plan: Modalities to reduce pain, spasms and effusion. Manual therapy to restore motion and function. Therapeutic exercise to improve strength and flexibility. Neuromuscular re-education for posture and balance. Therapeutic activities to return to functional activities of daily living. Electronically signed by: Amor Machado PT. Please sign and return to therapist. Thank you for your referral.
--- NOTE | 2025-01-11 07:48 | MHC.PT.DC ---
[facility] [place] Office [place] Office [place] Office [address] Fernando Shah [address] [facility] [phone] F: [phone] F: [phone] F: [phone] F: [phone] Physical Therapy Discharge Report Diagnosis: L shoulder pain Date of Surgery: Date of Evaluation: 08/02/24 Date of Discharge: 01/11/25 Treatments to Date: 1 Cancellations to Date: 3 No Shows to Date: Discharge Status: Patient Elected to Stop Discharge Summary: Pt did not return for therapy sessions. Electronically signed by: Amor Machado PT. Please sign and return to therapist. Thank you for your referral.
== END 2025-01-11 07:48 | disposition home or self-care (01) ==
LOC: HO.PT 12:48
PROVIDERS: PCP Internal Medicine; Visit Provider Internal Medicine
DX: M25.512 Pain in left shoulder (principal)
CPT/HCPCS: 97110; 97161

== ENCOUNTER 2024-10-15 12:29 | Outpatient (AMB) | payer OTHER, SELFPAY ==
--- NOTE | 2024-10-15 12:46 | A.OFFVIS_ITS ---
Vital Signs 10/15/24 12:47 Height 5 ft 4 in Weight 160 lb 14.999 oz BMI 27.6 BP 124/80 Blood Pressure Location Lt brachial Position Sitting Pulse 62 Intake Visit Reasons: 6 mth w/ [facility] Allergies No Known Allergies Allergy (Verified 08/01/24 14:25) Medication List - Last Reconciled 10/15/24 by Kj Ortiz MD aspirin (Adult Low Dose Aspirin) 81 mg PO DAILY calcium carbonate-vitamin D3 500 mg-10 mcg (400 unit) (Oyster Shell Calcium- Vitamin D3) 1 tab PO BID 90 days carvedilol 3.125 mg PO BID celecoxib (Celebrex) 200 mg PO BID 30 days rcozgebo-thk-uwlv-FA-vit K-lut 8 mg iron-400 mcg-50 mcg (Centrum Silver Women) 1 tab PO DAILY rosuvastatin 40 mg PO DAILY valsartan 40 mg PO BID HPI Comments Details: Hamida comes for follow-up. Patient denies any symptoms of exertional chest pain or shortness of breath. Remains active around the house, currently not working. No lightheadedness, syncope. Takes all her medications. Denies any orthopnea, PND, leg edema, abdominal distension. No prolonged palpitations, ICD discharge. Blood pressures at home are within normal limits. [facility] Medical History Nonsustained ventricular tachycardia ICD (implantable cardioverter-defibrillator) in place Ischemic cardiomyopathy CAD (coronary artery disease) Primary insomnia Surgical History Hx of CABG History of tubal ligation History of nasal surgery History of section Family History Father Lung cancer Stroke Mother Diabetes Hypertension Maternal Aunt Cervical cancer Sister Uterine cancer Social History Housing: Apartment Alcohol intake: current Alcohol intake frequency: holidays/special occasions only Patient Tobacco Use Status: Former Tobacco user e-Cigarette/Vaping Use: Never Used Second Hand Smoke Exposure: Yes Substance Use Type: Marijuana service: No Current occupational status: employed 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[employer], 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 Cognitive needs: No Hearing needs: No Vision needs: Yes Review of Systems Const Denies chills, Denies fatigue, Denies fever(s), Denies frequent falls, Denies weakness, Denies weight gain and Denies weight loss ENT Denies dizziness Card Denies chest pain, Denies leg edema, Denies lightheadedness, Denies palpitations, Denies dyspnea, Denies dyspnea on exertion, Denies orthopnea and Denies other (loss of consciousness) Resp Denies cough, Denies dyspnea and Denies dyspnea on exertion GI Denies hematochezia and Denies change in stool character Musc Denies abnormal gait, Denies muscle weakness, Denies numbness, Denies radiating pain into limb and Denies tingling Neuro Denies Abnormal speech present, Denies abnormal gait, Denies dizziness, Denies frequent falls, Denies numbness, Denies tingling and Denies weakness Endo Denies fatigue and Denies palpitations Physical Exam Vital Signs: Last Vital Signs Pulse 62 10/15/24 12:47 BP 124/80 10/15/24 12:47 BMI result Body Mass Index 27.6 Const General: cooperative, comfortable, no acute distress, alert, awake, Physically active and well groomed Orientation/consciousness: patient oriented x3 Neck Neck: Yes trachea midline, Yes supple and Yes no JVD Carotids: no bruits Chest Chest palpation & inspection: normal inspection of the chest and other (Well- healed sternotomy scar) Resp Effort & Inspection: normal respiratory effort Auscultation: clear to auscultation bilaterally Cardio Jugular venous distension: no JVD Palpation: abnormal PMI displaced PMI Rate: regular rate Rhythm: regular rhythm Heart sounds: S1 normal heart sound present, S2 normal heart sound present, no click, no gallops, no murmurs, no rubs and Other heart sounds present (Soft S4) Peripheral pulses: Peripheral pulses 2+ throughout GI Auscultation: normal bowel sounds Skin General skin exam: no rashes or lesions noted Neuro General: patient oriented x3 and no focal motor deficits Speech: No Abnormal speech present Extrem General: Yes no clubbing, cyanosis or edema Office Procedures Cardiac Device Check Cardiac Device Check Details: Single-chamber [employer] ICD in place. Programmed in VVI at 40 beats per minute. Few episodes of nonsustained VT noted without any therapy. Ventricular pacing thresholds excellent. Ventricular sensing is adequate. Pacing and shock lead impedance is stable. Battery life is adequate 23444-[id number] Cardiac Device Check, single lead implantable defibrillator Procedure code (CPT) selection complete EKG Details: EKG shows normal sinus rhythm with possible left atrial enlargement with anterior Q-waves along with possible inferior Q-waves suggestive of apical as well as anterior infarct 83861-Sjuoxaeqagweiswus, Complete Assessment & Plan Assessment & Plan (1) Ischemic cardiomyopathy: Code(s): I25.5 - Ischemic cardiomyopathy Category: Medical Plan: Severe ischemic cardiomyopathy without any signs or symptoms of heart failure fluid overload. Clinically euvolemic. NYHA class 1-2 symptoms. Advised to maintain activity level as tolerated. Advised to switch valsartan to Entresto therapy. Advised to monitor blood pressure at home maintain a log. Continue carvedilol therapy for neurohormonal modulation. Signs and symptoms of heart failure were discussed. No indication for diuretic therapy at this point time. Follow-up BMP in 2 weeks. (2) CAD (coronary artery disease): Code(s): I25.10 - Atherosclerotic heart disease of red devil coronary artery without angina pectoris Category: Medical Plan: CAD with prior anterior SC with LAD stent. Clinically having no symptoms of angina current workload. Continue low-dose aspirin therapy for life. Continue high-intensity statin therapy with target goal LDL closer to 55 mg/dL. Advised lipid panel near future. (3) ICD (implantable cardioverter-defibrillator) in place: Code(s): Z95.810 - Presence of automatic (implantable) cardiac defibrillator Category: Medical Plan: ICD in place for primary prevention. ICD is working well. Reprogrammed. Continue to monitor remotely and follow up in the clinic in 6 months time. Follow up in the clinic in 6 months time, sooner p.r.n.. Thank you for allowing me to partake in his care Orders: Orders Lipid Panel 2 Weeks I25.10 - Atherosclerotic heart disease of red devil coronary artery without angina pectoris Basic Metabolic Panel 2 Weeks I25.10 - Atherosclerotic heart disease of red devil coronary artery without angina pectoris Medications: New sacubitril-valsartan 24-26 mg (Entresto) 1 tab PO BID 60 tabs 2RF Discontinued valsartan Discontinued Reason: Doctor's Order 40 mg PO BID 60 tabs 5RF Coding Level of Care Code Est Pt Level 4 (84935) Complex EM visit Add On G2211 Diagnoses Ischemic cardiomyopathy I25.5 CAD (coronary artery disease) I25.10 ICD (implantable cardioverter-defibrillator) in place Z95.810 CPT Codes Cardiac Device Check - Cardiac Device 4: 33090-JA Cardiac Device Check, single lead implantable defibrillator ([id number]) EKG - CPT: 93447-Xqvtwvsifjzujgjvt, Complete ([id number])
[2024-10-15 12:47] VITALS: BP 124/80; PULSE 62; BMI 27.6
== END 2024-10-15 13:01 | disposition home or self-care (01) ==
PROVIDERS: PCP Internal Medicine; Visit Provider Internal Medicine Cardiovascular Disease
DX: I25.5 Ischemic cardiomyopathy (principal); I25.10 Atherosclerotic heart disease of native coronary artery without angina pectoris; Z95.810 Presence of automatic (implantable) cardiac defibrillator
CPT/HCPCS: 93010; 93282; 99214; G2211

== ENCOUNTER → 2024-10-15 12:29 | Outpatient (BNVA) | payer OTHER, SELFPAY | PROVIDERS: PCP Internal Medicine; Visit Provider Internal Medicine Cardiovascular Disease | DX: I25.5 Ischemic cardiomyopathy (principal); I25.10 Atherosclerotic heart disease of native coronary artery without angina pectoris; I25.2 Old myocardial infarction; Z45.02 Encounter for adjustment and management of automatic implantable cardiac defibrillator; Z79.82 Long term (current) use of aspirin; Z79.899 Other long term (current) drug therapy | CPT/HCPCS: 93005 ==

== ENCOUNTER 2024-12-10 13:48 | Outpatient (AMB) | payer OTHER, SELFPAY ==
--- NOTE | 2024-12-10 13:58 | A.OFFVIS_ITS ---
Vital Signs 12/10/24 14:06 Height 5 ft 4 in Weight 163 lb 2.273 oz BMI 28.0 BP 120/68 Blood Pressure Location Lt brachial Position Sitting Pulse 63 Intake Visit Reasons: follow up w device ck Intake Note: [facility]up [facility] and ekg feeling good Application Spec Required: No Allergies No Known Allergies Allergy (Verified 08/01/24 14:25) Medication List - Last Reconciled 12/10/24 by Kj Ortiz MD aspirin (Adult Low Dose Aspirin) 81 mg PO DAILY calcium carbonate-vitamin D3 500 mg-10 mcg (400 unit) (Oyster Shell Calcium- Vitamin D3) 1 tab PO BID 90 days carvedilol 3.125 mg PO BID celecoxib (Celebrex) 200 mg PO BID 30 days locubwiw-gty-iasv-FA-vit K-lut 8 mg iron-400 mcg-50 mcg (Centrum Silver Women) 1 tab PO DAILY rosuvastatin 40 mg PO DAILY sacubitril-valsartan 24-26 mg (Entresto) 1 tab PO BID HPI Comments Details: Hamida comes for follow-up. She has been doing well from cardiac perspective. She denies any significant cardiovascular symptoms. Not as functional or exercising as much as before. Denies any significant shortness of breath, orthopnea, PND. No prolonged palpitation irregular heartbeat or ICD discharge or syncope. No exertional chest pain. Takes all her medications. [facility] Medical History Nonsustained ventricular tachycardia ICD (implantable cardioverter-defibrillator) in place Ischemic cardiomyopathy CAD (coronary artery disease) Primary insomnia Surgical History Hx of CABG History of tubal ligation History of nasal surgery History of section Family History Father Lung cancer Stroke Mother Diabetes Hypertension Maternal Aunt Cervical cancer Sister Uterine cancer Social History Housing: Apartment Alcohol intake: current Alcohol intake frequency: holidays/special occasions only Patient Tobacco Use Status: Former Tobacco user e-Cigarette/Vaping Use: Never Used Second Hand Smoke Exposure: Yes Substance Use Type: Marijuana service: No Current occupational status: employed 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[employer], 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 Cognitive needs: No Hearing needs: No Vision needs: Yes Review of Systems Const Denies chills, Denies fatigue, Denies fever(s), Denies frequent falls, Denies weakness, Denies weight gain and Denies weight loss ENT Denies dizziness Card Denies chest pain, Denies leg edema, Denies lightheadedness, Denies palpitations, Denies dyspnea, Denies dyspnea on exertion, Denies orthopnea and Denies other (loss of consciousness) Resp Denies cough, Denies dyspnea and Denies dyspnea on exertion GI Denies hematochezia and Denies change in stool character Musc Denies abnormal gait, Denies muscle weakness, Denies numbness, Denies radiating pain into limb and Denies tingling Neuro Denies Abnormal speech present, Denies abnormal gait, Denies dizziness, Denies frequent falls, Denies numbness, Denies tingling and Denies weakness Endo Denies fatigue and Denies palpitations Physical Exam Vital Signs: Last Vital Signs Pulse 63 12/10/24 14:06 BP 120/68 12/10/24 14:06 BMI result Body Mass Index 28.0 Const General: cooperative, comfortable, no acute distress, alert, awake, Physically active and well groomed Orientation/consciousness: patient oriented x3 Neck Neck: Yes trachea midline, Yes supple and Yes no JVD Carotids: no bruits Chest Chest palpation & inspection: normal inspection of the chest and other (Well- healed sternotomy scar) Resp Effort & Inspection: normal respiratory effort Auscultation: clear to auscultation bilaterally Cardio Jugular venous distension: no JVD Palpation: abnormal PMI displaced PMI Rate: regular rate Rhythm: regular rhythm Heart sounds: S1 normal heart sound present, S2 normal heart sound present, no click, no gallops, no murmurs, no rubs and Other heart sounds present (Soft S4) Peripheral pulses: Peripheral pulses 2+ throughout GI Auscultation: normal bowel sounds Skin General skin exam: no rashes or lesions noted Neuro General: patient oriented x3 and no focal motor deficits Speech: No Abnormal speech present Extrem General: Yes no clubbing, cyanosis or edema Office Procedures Cardiac Device Check Cardiac Device Check Details: Single-chamber [employer] ICD in place. Programmed in VVI at 40 beats per minute. P few episodes of nonsustained VT noted. Ventricular sensing is excellent. Ventricular pacing thresholds adequate. Pacing and shock lead impedance is stable. Battery life is at about 3 years 56808-VD Cardiac Device Check, single lead implantable defibrillator Procedure code (CPT) selection complete EKG Details: EKG shows normal sinus rhythm with poor R-wave progression consistent with anterior infarct with nonspecific ST T wave changes [id number], Complete Assessment & Plan Assessment & Plan (1) Chronic systolic (congestive) heart failure: Code(s): I50.22 - Chronic systolic (congestive) heart failure Category: Medical Plan: Heart failure with reduced ejection fraction with severe LV systolic dysfunction with no evidence of heart failure on current medical therapy. Currently not on diuretic regimen. Continue neurohormonal modulation with carvedilol and Entresto therapy. Can not further uptitrate due to blood pressure issues. (2) CAD (coronary artery disease): Code(s): I25.10 - Atherosclerotic heart disease of chicken ranch coronary artery without angina pectoris Category: Medical Plan: CAD with prior anterior CT. Continue low-dose aspirin therapy for life. Continue high-intensity statin therapy with rosuvastatin 40 mg daily. Target goal LDL less than 60 mg/dL. Advise annual lipid checks. Continue maintain activity level as tolerated. (3) ICD (implantable cardioverter-defibrillator) in place: Code(s): Z95.810 - Presence of automatic (implantable) cardiac defibrillator Category: Medical Plan: ICD in place without any signs or symptoms of heart failure ICD is working well. Will follow remotely every 3 months for device check as well as monthly for heart failure check. Follow up in the clinic in 6 months time, sooner p.r.n.. Thank you for allowing me to partake in her care Coding Level of Care Code Est Pt Level 4 (27444) Complex EM visit Add On G2211 Diagnoses Chronic systolic (congestive) heart failure I50.22 CAD (coronary artery disease) I25.10 ICD (implantable cardioverter-defibrillator) in place Z95.810 CPT Codes Cardiac Device Check - Cardiac Device 4: 56612-CR Cardiac Device Check, single lead implantable defibrillator ([id number]) EKG - CPT: 60960-Honngsjsxkxyedsom, Complete ([id number])
[2024-12-10 14:06] VITALS: BP 120/68; PULSE 63; BMI 28.0
== END 2024-12-10 14:21 | disposition home or self-care (01) ==
LOC: HO.HCS 13:49
PROVIDERS: PCP Internal Medicine; Visit Provider Internal Medicine Cardiovascular Disease
DX: I50.22 Chronic systolic (congestive) heart failure (principal); I25.10 Atherosclerotic heart disease of native coronary artery without angina pectoris; Z95.810 Presence of automatic (implantable) cardiac defibrillator
CPT/HCPCS: 93010; 93282; 99214; G2211

== ENCOUNTER → 2024-12-10 13:48 | Outpatient (BNVA) | payer OTHER, SELFPAY | PROVIDERS: PCP Internal Medicine; Visit Provider Internal Medicine Cardiovascular Disease | DX: I50.22 Chronic systolic (congestive) heart failure (principal); I25.10 Atherosclerotic heart disease of native coronary artery without angina pectoris; Z95.810 Presence of automatic (implantable) cardiac defibrillator | CPT/HCPCS: 93005 ==

== ENCOUNTER 2025-06-10 12:57 | Outpatient (AMB) | payer OTHER, SELFPAY ==
[2025-06-10 13:17] VITALS: BP 120/76; PULSE 66; BMI 28.0
--- NOTE | 2025-06-10 13:17 | MHC.OFFVIS ---
Vital Signs 06/10/25 13:17 Height 5 ft 4 in Weight 163 lb 2.273 oz BMI 28.0 BP 120/76 Blood Pressure Location Lt brachial Position Sitting Pulse 66 Intake Visit Reasons: 6 m[facility] w/ [facility] Intake Note: 6 month follow-up after [facility] feeling good Office Clin Asst Required: No Allergies No Known Allergies Allergy (Verified 08/01/24 14:25) Medication List - Last Reconciled 06/10/25 by Kj Ortiz MD aspirin (Adult Low Dose Aspirin) 81 mg PO DAILY calcium carbonate-vitamin D3 500 mg-10 mcg (400 unit) (Oyster Shell Calcium-Vitamin D3) 1 tab PO BID 90 days carvedilol 3.125 mg PO BID celecoxib (Celebrex) 200 mg PO BID 30 days jecmylqz-bpo-pteo-FA-vit K-lut 8 mg iron-400 mcg-50 mcg (Centrum Silver Women) 1 tab PO DAILY rosuvastatin 40 mg PO DAILY sacubitril-valsartan 24-26 mg (Entresto) 1 tab PO BID HPI Comments Details: Hamida comes for follow-up. Overall she has been doing well from cardiac perspective. She denies any palpitations, lightheadedness, syncope, ICD discharge. Denies any worsening shortness of breath, orthopnea, PND, leg edema. Takes all her medications. No exertional chest pain. No bleeding issues or neurologic events. [facility] Medical History Nonsustained ventricular tachycardia ICD (implantable cardioverter-defibrillator) in place Ischemic cardiomyopathy CAD (coronary artery disease) Primary insomnia Surgical History Hx of CABG History of tubal ligation History of nasal surgery History of section Family History Father Lung cancer Stroke Mother Diabetes Hypertension Maternal Aunt Cervical cancer Sister Uterine cancer Social History Housing: Apartment Alcohol intake: current Alcohol intake frequency: holidays/special occasions only Patient Tobacco Use Status: Former Tobacco user e-Cigarette/Vaping Use: Never Used Second Hand Smoke Exposure: Yes Substance Use Type: Marijuana service: No Current occupational status: employed 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[employer], 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 Cognitive needs: No Hearing needs: No Vision needs: Yes Review of Systems Const Denies chills, Denies fatigue, Denies fever(s), Denies frequent falls, Denies weakness, Denies weight gain and Denies weight loss ENT Denies dizziness Card Denies chest pain, Denies leg edema, Denies lightheadedness, Denies palpitations, Denies dyspnea, Denies dyspnea on exertion, Denies orthopnea and Denies other (loss of consciousness) Resp Denies cough, Denies dyspnea and Denies dyspnea on exertion GI Denies hematochezia and Denies change in stool character Musc Denies abnormal gait, Denies muscle weakness, Denies numbness, Denies radiating pain into limb and Denies tingling Neuro Denies Abnormal speech present, Denies abnormal gait, Denies dizziness, Denies frequent falls, Denies numbness, Denies tingling and Denies weakness Endo Denies fatigue and Denies palpitations Physical Exam Vital Signs: Last Vital Signs Pulse 66 06/10/25 13:17 BP 120/76 06/10/25 13:17 BMI result Body Mass Index 28.0 Const General: cooperative, comfortable, no acute distress, alert, awake, Physically active and well groomed Orientation/consciousness: patient oriented x3 Neck Neck: Yes trachea midline, Yes supple and Yes no JVD Carotids: no bruits Chest Chest palpation & inspection: normal inspection of the chest and other (Well-healed sternotomy scar) Resp Effort & Inspection: normal respiratory effort Auscultation: clear to auscultation bilaterally Cardio Jugular venous distension: no JVD Palpation: abnormal PMI displaced PMI Rate: regular rate Rhythm: regular rhythm Heart sounds: S1 normal heart sound present, S2 normal heart sound present, no click, no gallops, no murmurs, no rubs and Other heart sounds present (Soft S4) Peripheral pulses: Peripheral pulses 2+ throughout GI Auscultation: normal bowel sounds Skin General skin exam: no rashes or lesions noted Neuro General: patient oriented x3 and no focal motor deficits Speech: No Abnormal speech present Extrem General: Yes no clubbing, cyanosis or edema Office Procedures Cardiac Device Check Cardiac Device Check Details: Single-chamber [employer] ICD in place. Programmed in VVI at 40 beats per minute. Multiple episodes of nonsustained ventricular tachycardia noted. Ventricular sensing is excellent. Pacing and shock lead impedance is stable. Battery life is at 2 and half years 03056-VV Cardiac Device Check, single lead implantable defibrillator Procedure code (CPT) selection complete Assessment & Plan Assessment & Plan (1) Ischemic cardiomyopathy: Code(s): I25.5 - Ischemic cardiomyopathy Category: Medical Plan: Severe ischemic cardiomyopathy with markedly reduced LV ejection fraction without signs or symptoms of congestive heart failure. Will further maximize carvedilol and Entresto therapy. Advised to monitor blood pressure at home. Will follow up in the clinic 1 week for blood pressure check and checking BNP. Importance of regular physical activity was discussed. Signs and symptoms of heart failure were discussed. (2) CAD (coronary artery disease): Code(s): I25.10 - Atherosclerotic heart disease of chicken ranch coronary artery without angina pectoris Category: Medical Plan: CAD with prior anterior wall NH. Continue aggressive medical therapy. Continue low-dose aspirin therapy for life. Continue high-intensity statin therapy with target goal LDL less than 70 mg/dL. Advised to follow-up lipid panel next week. Continue aggressive blood pressure control which is currently well optimized. Encouraged to maintain and increase regular physical activity. (3) ICD (implantable cardioverter-defibrillator) in place: Code(s): Z95.810 - Presence of automatic (implantable) cardiac defibrillator Category: Medical Plan: ICD in place for primary prevention. Patient has multiple nonsustained ventricular tachycardia episode. Continue monitor clinically. No therapies delivered. At this point time continue to avoid stimulants. Continue carvedilol therapy. Will monitor remotely. Follow up in the clinic in 6 months time after an echocardiogram. Thank you for allowing me to partake in her care Orders: Orders Lipid Panel 1 Week I25.10 - Atherosclerotic heart disease of chicken [place] coronary artery without angina pectoris Basic Metabolic Panel 1 Week I25.10 - Atherosclerotic heart disease of [place] coronary artery without angina pectoris Medications: New carvedilol (Coreg) must administer with a meal/food 6.25 mg PO BID 60 tabs 5RF I25.10 - Atherosclerotic heart disease of chicken [place] coronary artery without angina pectoris sacubitril-valsartan 49-51 mg (Entresto) 1 tab PO BID 60 tabs 5RF I25.10 - Atherosclerotic heart disease of [place] coronary artery without angina pectoris blood pressure test kit-medium (WatchBP Home BP Monitor kit) As directed 1 ea 0RF I25.10 - Atherosclerotic heart disease of chicken [place] coronary artery without angina pectoris Discontinued sacubitril-valsartan 24-26 mg (Entresto) Discontinued Reason: Doctor's Order 1 tab PO BID 60 tabs 2RF carvedilol Discontinued Reason: Doctor's Order 3.125 mg PO BID 180 tabs 3RF I25.5 - Ischemic cardiomyopathy Coding Level of Care Code Est Pt Level 4 (77112) Complex EM visit Add On G2211 Diagnoses Ischemic cardiomyopathy I25.5 CAD (coronary artery disease) I25.10 ICD (implantable cardioverter-defibrillator) in place Z95.810 CPT Codes Cardiac Device Check - Cardiac Device 4: 46220-BU Cardiac Device Check, single lead implantable defibrillator ([id number])
--- OUTSIDE RECORDS SUMMARY | 2025-06-10 17:56 | XMS_ITS | Patient Health Record ---
Author Organization [facility] Address [address] [place] [address] Care Team Providers Care Diamond Grinder Name Role Phone Rosalie Merlos Primary Care Provider Unavailab Augutso Vela Unavailable [phone] Reason For Referral No Information Medications Medication SIG (Take, Route, Frequency, Duration) Notes Start Date End Date Status oxyCODONE-Acetaminophen 5-325 MG/5ML 5 ml as needed Orally every 6 hrs Active Nitroglycerin 0.4 MG Sublingual Active Stool Softener 100 MG 1 tablet as needed Orally Once a day Active Loratadine 10 MG 1 tablet Orally Once a day Active Multi Vitamin/Minerals Orally Active Iron 325 (65 Fe) MG 1 tablet Orally Once a day Active Coreg 12.5 MG 1 tablet with food Orally Twice a day Active Lisinopril 10 MG 1 tablet Orally Once a day Active Furosemide 20 MG 1 tablet Orally Once a day Active Suprep Bowel Prep 1 kit as directed Oral ly as directed for 1 dose 05/31/2015 Active Lipitor 80 MG 1 tablet Orally Once a day Active Aspir-81 81 MG 1 tablet Orally Once a day Active Problems Problem Type SNOMED Code ICD Code Onset Dates Problem Status W/U Status Risk Notes Problem Pre-surgery evaluation (872929795) Other specified pre-operative examination (V72.83) Active confirmed Problem Family History of Cancer of Colon (Situation) (632698508) Family history of colon cancer (V16.0) Active confirmed Problem Colon cancer screening (506981482) Colon cancer screening (V76.51) Active confirmed Problem Long-term use of aspirin therapy (V58.66) Active confirmed Plan Of Treatment Future Test Test Name Order Date COLONOSCOPY 05/28/2015 Insurance Providers Payer Name Payer Address Payer Phone Subscriber Number Group Number Insured Name Patient Relationship to Insured Coverage Start Date Coverage End Date [facility] [address] [place] [phone] [id number] VINCENZO FRIEDMAN Self - patient is the insured Medical (General) History Medical History History ICD Code Ischemic cardiomyopathy--sees Dr. Ortiz CAD-[place] at age 44 CHF Hyperlipidemia HTN Denies DM,Lung disease, CVA, renal disea se Surgical History Surgery Date(Month/Year) S/P CABG x4 11/2013 tubal ligation 11/2009 Coronary artery stent placement 1990 Defibrillator 02/2014
== END 2025-06-10 13:51 | disposition home or self-care (01) ==
LOC: HO.HCS 12:58
PROVIDERS: PCP Internal Medicine; Visit Provider Internal Medicine Cardiovascular Disease
DX: I25.5 Ischemic cardiomyopathy (principal); I25.10 Atherosclerotic heart disease of native coronary artery without angina pectoris; Z95.810 Presence of automatic (implantable) cardiac defibrillator
CPT/HCPCS: 93282; 99214; G2211

== ENCOUNTER 2025-06-18 08:02 | Outpatient (REF) | payer OTHER, SELFPAY ==
--- OUTSIDE RECORDS SUMMARY | 2025-06-18 08:42 | XMS_ITS | Patient Health Record ---
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 Name Role Phone Rosalie Merlos Primary Care Provider Unavailab Augusto Vela Unavailable [phone] Reason For Referral No Information Medications Medication [...] W/U Status Risk Notes Problem Pre-surgery evaluation (416063284) Other specified pre-operative examination (V72.83) Active confirmed Problem Family History of Cancer of Colon (Situation) (695408174) Family history of colon cancer (V16.0) Active confirmed Problem Colon cancer screening (849454113) Colon cancer screening (V76.51) Active confirmed Problem Long-term use of aspirin therapy (V58.66) Active confirmed Plan Of Treatment Future Test Test Name Order Date COLONOSCOPY 05/28/2015 Insurance Providers Payer Name Payer Address Payer Phone Subscriber Number Group Number Insured Name Patient Relationship to Insured Coverage Start Date Coverage End Date [facility] [address] [facility] [place] [phone] [id number] VINCENZO FRIEDMAN Self - patient is the insured Medical (General) History Medical History History ICD Code Ischemic cardiomyopathy--sees Dr. Ortiz CAD-[place] at age 44 CHF Hyperlipidemia HTN Denies DM,Lung disease, CVA, renal disea se Surgical History Surgery Date(Month/Year) S/P CABG x4 11/2013 tubal ligation 11/2009 Coronary artery stent placement 1990 Defibrillator 02/2014
== END 2025-06-18 08:03 | disposition home or self-care (01) ==
LOC: HO.LAB 08:02
PROVIDERS: PCP Internal Medicine; Visit Provider Internal Medicine Cardiovascular Disease
DX: I25.10 Atherosclerotic heart disease of native coronary artery without angina pectoris (principal)
CPT/HCPCS: 36415; 80048; 80061

== ENCOUNTER 2025-09-04 10:13 | Emergency (ER) | payer OTHER, SELFPAY ==
--- NOTE | ~2025-09-04 | US_ITS ---
EXAMINATION: US RETROPERITONEAL LIMITED (LEFT KIDNEY) CLINICAL INFORMATION: Left flank pain.. COMPARISON: None available. TECHNIQUE: Real-time ultrasound of the left kidney using grayscale FINDINGS: LEFT KIDNEY: 10 x 4 x 6 cm (SAG x AP x TRV). Volume: 122 cc. Normal echotexture. Renal cortical thickness is normal. No hydronephrosis. No gross calcifications/stones. 0.4 cm small anechoic structure at the corticomedullary junction of the midportion without flow on color Doppler interrogation. US/US renal LT IMPRESSION: No hydronephrosis or gross nephrolithiasis, left kidney. Small 0.4 cm cyst, left kidney.. Electronically signed by: Herbie Martino MD 09/04/2025 11:15 AM [facility]
--- NOTE | 2025-09-04 10:17 | ED_ITS ---
HPI - General Adult General Chief complaint: Back Pain/Injury Stated complaint: kidney pain Time Seen by Provider: 09/04/25 12:38 Source: patient and family (patient's son) Mode of arrival: ambulatory Limitations: no limitations History of Present Illness ED Provider: Ailin Phillip PA-C HPI narrative: Patient is a 64 year old assigned female at with a history of ischemic cardiomyopathy, HTN, CAD, osteopenia, and CHF presenting to the emergency department today with left sided low back pain. Patient states that over the last 6 days she has had left lower back pain that radiates into her left upper leg. Patient denies any trauma. States that nothing makes it better or worse. Patient denies urinary complaints. Patient denies any other complaints at this time. Onset (ago): day(s) () Relieving factors: none Exacerbating factors: none Associated symptoms: denies other symptoms Treatments prior to arrival: none Related Data Home Medications ?Medication ?Instructions ?Recorded ?Confirmed [id number] 8 mg-folic 400 1 tab PO DAILY 04/2306/10/25 mcg-K 50 mcg-lutein 300 mcg tablet (Centrum Silver Women) Previous Rx's ?Medication ?Instructions ?Recorded calcium 500 mg (as 1 tab PO BID 90 days #180 ta bs 01/25/25 carbonate)-vitamin D3 10 mcg (400 unit) tablet (Oyster Shell Calcium-Vitamin D3) aspirin 81 mg tablet,delayed 81 mg PO DAILY #90 tabs 0 06/18/25 release (Adult Low Dose Aspirin) blood pressure test kit-medium #1 ea 06/18/25 (WatchBP Home BP Monitor kit) carvedilol 6.25 mg tablet (Coreg) 6.25 mg PO BID #60 t abs 06/18/25 sacubitril 49 mg-valsartan 51 mg 1 tab PO BID #60 tabs 06/18/25 tablet (Entresto) celecoxib 200 mg capsule 200 mg PO BID #60 caps 08/05 rosuvastatin 40 mg tablet 40 mg PO DAILY #90 tabs 07/27 06/20 cefuroxime axetil 250 mg tablet 500 mg (2 x 250 mg) PO BID 7 days 09/04/25 #28 tabs cyclobenzaprine 5 mg tablet 5 mg PO TID PRN muscle spa sm 7 09/04/25 days #21 tabs Allergies Allergy/AdvReac Type Severity Reaction Status Date / Time No Known Allergies Allergy Verified 09/04/25 10:25 Review of Systems 2 Constitutional: Constitutional: Reports as per HPI Eyes: Eyes: Reports as per HPI ENT: Reports as per HPI Cardiovascular: Cardiovascular: Reports as per HPI Respiratory: Respiratory: Reports as per HPI Gastrointestinal: Gastrointestinal: Reports as per HPI Genitourinary: Genitourinary: Reports as per HPI Musculoskeletal: Musculoskeletal: Reports as per HPI Integumentary/Breasts: Skin/Breast: Reports as per HPI Neurologic: Reports as per HPI Psychiatric: Psychiatric: Reports as per HPI Endocrine: Endocrine: Reports as per HPI Hematologic/Lymphatic: Hematologic/Lymphatic: Reports as per HPI Allergic/Immunologic: Allergic/Immunologic: Reports as per HPI [facility] Past Medical History Attestation statement: The following information was validated with the patient. (all information validated with the patient's son) Source: old records reviewed, obtained from family (patient's son provided additional history and confirmed the history provided by the patient. ) and nursing notes reviewed Medical History Nonsustained ventricular tachycardia ICD (implantable cardioverter-defibrillator) in place Ischemic cardiomyopathy CAD (coronary artery disease) Primary insomnia Surgical History Hx of CABG History of tubal ligation History of nasal surgery History of section Family History Family History Father Lung cancer Stroke Mother Diabetes Hypertension Maternal Aunt Cervical cancer Sister Uterine cancer Social History Social History Housing: Apartment Alcohol intake: current Alcohol intake frequency: holidays/special occasions only Patient Tobacco Use Status: Former Tobacco user e-Cigarette/Vaping Use: Never Used Second Hand Smoke Exposure: Yes Substance Use Type: Marijuana Advance Directives: No Advance Directives Information Provided: Yes Do you have a plan to hurt others: No Plan service: No Current occupational status: employed 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[employer], 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 Cognitive needs: No Hearing needs: No Vision needs: Yes Physical Exam ED Vital Signs: Vital Signs - 24 hr 09/04/25 10:21 09/04/25 13:11 Temperature 97.4 F 97.4 F Pulse Rate 58 58 Respiratory Rate 20 20 Blood Pressure 151/67 H 151/67 H Pulse Oximetry 97 97 Oxygen Delivery Method Room Air Room Air BMI result Body Mass Index 28.3 Const General: cooperative, no acute distress, alert and awake Nutritional Appearance: well nourished Orientation/consciousness: patient oriented x3 HENMT Head: Yes normal to inspection and Yes atraumatic Ears: hearing grossly normal bilaterally and external ears normal General nose exam: Normal external nose present, no nasal discharge noted and no epistaxis Face and sinus: Yes normal facial exam, No abrasion and No laceration Mouth: Normal oral and palatal mucosa present, no drooling and no muffled voice Eyes General: appearance normal, both eyes and all related structures Periorbital: periorbital findings normal Eyelids: Yes eyelids normal Conjunctivae: conjunctivae normal Pupils: Equal, round and reactive pupils present EOM: EOMs intact bilaterally Neck Neck: Yes normal visual inspection and Yes full ROM Resp Effort & Inspection: normal respiratory effort and able to speak in complete sentences Neuro General: patient oriented x3, moves all extremities and CN's II-XI intact bilaterally Cranial nerves: Yes Equal, round and reactive pupils present Cognition (Neuro): normal cognition Extrem General: Yes normal to inspection, Yes full ROM and Yes capillary refill normal Psych Appearance: grossly normal Mental Status: mental status grossly normal Affect: normal affect Attitude: cooperative Thought process: Normal thought process present Thought content: Normal thought content present Insight: Good insight present (Psych) Course Course Course Narrative: This is an RME: Additional HPI, ROS, PE not included below will be deferred to primary provider. RME assessment and note performed by: Sanna Warner PA-C This is a 64-year-old female, with a past medical history of ischemic cardiomyopathy, CAD, who presents to the emergency department with concerns of left sided flank pain. Reports that last she felt what she thought was a muscle spasm on the left flank. Reports pain is constant and radiates down into her left leg. No urinary or bowel retention or incontinence. Pain is constant. Has been taking Advil with some relief. Pt with TTP overlying the left lumbar musculature extending into the left flank. No abd pain. No fevers, chills, nausea, vomiting, diarrhea. Plan: Labs, UA, US renal Medical Decision Making Medical Decision Making MDM Narrative: Patient is a 64 year old assigned female at with a history of ischemic cardiomyopathy, HTN, CAD, osteopenia, and CHF presenting to the emergency department today with left sided low back pain. Patient's physical exam was as noted in the physical exam portion of this note. Patient's blood work, ordered by the provider in triage, was unremarkable. Patient's urine showed a possible UTI, given age, comorbidities, and back pain - will treat with abx. Patient's kidney US, ordered by the provider in triage, showed no acute process but did show an incidental finding of a left 0.4cm cyst of the kidney. Patient's clinical presentation is most consistent with left sided sciatica / lumbar spine pain and a possible UTI. I explained my physical exam findings as well as all test results to the patient and the patient's son. I answered all questions asked by the patient and the patient's son. I stressed the importance of the patient taking her medication as directed (either prescribed or as the over the counter packaging recommends). I stressed the importance of the patient following up with her primary care provider. I stressed the importance of the patient returning to the emergency department immediately if her symptoms were to worsen or if she were to develop any dizziness, shortness of breath, difficulty breathing, chest pain, blurry vision, loss of vision, nausea, vomiting, abdominal pain, fever, chills, back pain, or any other complaints. Patient and the patient's son verbalized agreement and understanding with this treatment plan and discharge. Differential Diagnosis Differential Diagnoses: The differential diagnosis associated with the presentation includes Low back pain Sciatica Muscle spasm UTI Admission/Observation Consideration of admission/observation: Escalation of care including admission/observation considered Patient would have been admitted to the hospital had her work up had any findings where hospital admission was appropriate and her clinical presentation warranted hospital admission. Lab Data [facility] Lab Attestation statement: I reviewed the patient's lab results. My interpretation of these results are in the MDM Rationale portion of this note. 09/04/25 10:45 09/04/25 10:45 Labs: Lab Results 09/04/25 Range/Units 10:45 WBC 6.5 (4.8-10.8) X10*3/uL RBC 4.03 L (4.20-5.50) X10*6/uL Hgb 12.9 (12.0-16.0) g/dl Hct 37.4 (37.0-47.0) % MCV 92.8 (80.0-98.0) fL MCH 32.0 (27.0-33.0) pg MCHC 34.5 (31.0-35.0) g/dl RDW 14.3 (11.0-16.0) % Plt Count 154 L (160-400) X10*3/uL MPV 11.4 (9.4-12.3) fL Immature Gran % (Auto) 0.3 (0.0-0.4) % Neut % (Auto) 61.8 (45-73) % Lymph % (Auto) 27.8 (20-40) % [place] % (Auto) 7.1 (2-11) % Eos % (Auto) 2.5 (0-4) % Baso % (Auto) 0.5 (0-2) % Lymph # (Auto) 1.8 (1.2-4.9) X10*3/uL [place] # (Auto) 0.5 (0.1-1.2) X10*3/uL Eos # (Auto) 0.2 (0.0-0.4) X10*3/uL Baso # (Auto) 0.0 (0.0-0.2) X10*3/uL Abs Immat Gran (auto) 0.02 (0.00-0.03) X10*3/uL Absolute Neuts (auto) 4.0 (2.0-8.3) x10*3/uL Absolute Nucleated RBC 0.000 (0.0-0.012) X10*3/uL Nucleated RBC % (auto) 0.0 (0.0-0.2) /100WBC Sodium 140 (135-145) mmol/L Potassium 4.7 D (3.3-5.1) mmol/L Chloride 109 H (96-108) mmol/L Carbon Dioxide 27 (22-29) mmol/L Anion Gap 9 L (12-20) BUN 16 (9-16) mg/dL Creatinine 0.74 (0.5-1.4) mg/dL Estim Creat Clear Calc 74.0 Estimated GFR > 60 Random Glucose 102 (60-115) mg/dL Calcium 9.5 (8.4-10.2) mg/dL Total Bilirubin 0.5 (0.0-1.0) mg/dL Direct Bilirubin 0.2 (0.0-0.5) mg/dL AST 27 (5-31) U/L ALT 17 (0-31) U/L Alkaline Phosphatase 66 (39-117) U/L Total Protein 7.2 (6.5-8.0) g/dL Albumin 4.5 (3.5-5.0) g/dL Lipase 18 (8-78) U/L Urine Color Dark Yellow Urine Appearance Cloudy Urine pH 5.5 (5.0-9.0) Ur Specific [place] >= 1.030 H (1.005-1.025) Urine Protein 30 (1+) H (Neg-Trace) mg/dL Urine Glucose (UA) Negative (Negative) mg/dL Urine Ketones Trace (Negative) mg/dL Urine Blood Negative (Negative) Urine Nitrite Negative (Negative) Ur Leukocyte Esterase Trace H (Negative) Urine RBC 0-2 (0-2) /HPF Urine WBC 0-5 (0-5) /HPF Ur Squamous Epith Cells 6-10 (0-2) /HPF Urine Bacteria Trace (None Seen) Hyaline Casts 6-10 (0-2) /LPF Independent Interpretation I performed an independent interpretation of an: Ultrasound Interpretation: My interpretation is in agreement with the radiologist's impression of this imaging study as written below. Reason for Exam: L flank pain EXAMINATION: US RETROPERITONEAL LIMITED (LEFT KIDNEY) CLINICAL INFORMATION: Left flank pain.. COMPARISON: None available. TECHNIQUE: Real-time ultrasound of the left kidney using grayscale FINDINGS: LEFT KIDNEY: 10 x 4 x 6 cm (SAG x AP x TRV). Volume: 122 cc. Normal echotexture. Renal cortical thickness is normal. No hydronephrosis. No gross calcifications/stones. 0.4 cm small anechoic structure at the corticomedullary junction of the midportion without flow on color Doppler interrogation. US/US renal LT IMPRESSION: No hydronephrosis or gross nephrolithiasis, left kidney. Small 0.4 cm cyst, left kidney.. Electronically signed by: Herbie Martino MD 09/04/2025 11:15 AM [facility] Dictated By: Herbie Ellis MD Signed By: Electronically signed by Herbie Cardona MD 09/04/25 1115 Radiology Impression Discussion of test interpretation with radiology: I have reviewed the radiologist's reading. Independent Historian Clinical information obtained from an independent historian. History obtained from or confirmed by: Other (patient's son provided additional history and confirmed the history provided by the patient.) Tests considered The following testing was considered but not selected: I considered obtaining a CT scan of the lumbar spine however, the patient's current clinical presentation and lack of trauma did not warrant this at this time. Prescription Management I considered prescription management with: Pain Medication (patient prescribed flexeril for low back pain / sciatica.) and Antibiotic (patient prescribed antibiotic for possible UTI.) Discharge Plan Discharge Clinical Impression: Acute UTI Sciatica Qualifiers: Laterality: left Qualified Code(s): M54.32 - Sciatica, left side Patient Disposition: Home, Self-Care Instructions: Urinary Tract Infection in Women (DC), Sciatica (ED), Back Pain (ED), Lower Back Exercises (ED) Additional Instructions: Your work up today was reassuring there is no EMERGENT cause for your symptoms. Your urine incidentally showed evidence of an infection for which you were prescribed an antibiotic. Your US of the kidney showed a small 0.4cm left kidney cyst. This is likely a normal anatomical variant for you but you should follow up with your primary care provider. IF you are prescribed home medications and/or you are taking over the counter medications at home - it is very important you continue to do so as prescribed / directed unless told otherwise by a healthcare provider. Follow up with your primary care provider. Do your best to stay well hydrated and rest. Return to the emergency department immediately if your symptoms worsen or if you develop any numbness, tingling, dizziness, shortness of breath, difficulty breathing, chest pain, blurry vision, loss of vision, nausea, vomiting, abdominal pain, fever, chills, back pain, or any other complaints. Please see the information below about our Patient Portal. If you are not yet enrolled in the [facility] Patient Portal, you will receive an enrollment email invitation following your visit to any [facility] [place] [place] care setting. You may also self-enroll in the Patient Portal by visiting our website: [email or web address] The following information is required to access the Patient Portal: - Your [facility] Medical Record Number - Your personal home email address (must match what is in your electronic medical record, Registration staff can assist with this) - Name - Date of Capabilities of the Patient Portal: - Message some providers - View upcoming appointments - Access your health summary, medical history, and visit history - View current conditions and allergies - View procedure and lab results - View your medications, including guidelines, side effects, and precautions - Complete pre-appointment questionnaires requested by your provider - Ready summary reports of your office visits and procedures To access the Patient Portal Mobile Jeff, follow these directions: - Search [employer]pi[employer] in the Jeff Store or Digit[employer] Store - Download the Jeff - Search for [facility] - Enter your login/password Prescriptions: New cyclobenzaprine 5 mg tablet 5 mg PO TID PRN (Reason: muscle spasm) 7 Days Qty: 21 0RF cefuroxime axetil 250 mg tablet 500 mg PO BID 7 Days Qty: 28 0RF No Action calcium carbonate-vitamin D3 [Oyster Shell Calcium-Vit D3] 500 mg-10 mcg (400 unit) tablet 1 tab PO BID 90 Days Qty: 180 0RF celecoxib 200 mg capsule 200 mg PO BID Qty: 60 3RF rosuvastatin 40 mg tablet 40 mg PO DAILY Qty: 90 3RF Centrum Silver Women 8 mg iron-400 mcg-300 mcg tablet 1 tab PO DAILY carvedilol [Coreg] 6.25 mg tablet 6.25 mg PO BID Qty: 60 5RF Rx Instructions: must administer with a meal/food sacubitril-valsartan [Entresto] 49-51 mg tablet 1 tab PO BID Qty: 60 5RF aspirin [Adult Low Dose Aspirin] 81 mg tablet,delayed release (DR/EC) 81 mg PO DAILY Qty: 90 3RF (DME) blood pressure test kit-medium [WatchBP Home BP Monitor] Kit See Rx Instructions .Route Qty: 1 0RF Rx Instructions: As directed Referrals: Rosalie Merlos MD [Primary Care Provider, Internal Medicine] Interventions: ED Discharge Assessment Last Done: 09/04/25 13:11 Discharge Date/Time: 09/04/25 13:12 Print Language: Yemeni
[2025-09-04 10:21] VITALS: BP 151/67; PULSE 58; RESP 20; TEMP 36.3; O2SAT 97; BMI 28.3
[2025-09-04 10:54] LABS: MANUAL DIFF FLAG NO
[2025-09-04 10:57] LABS: Appearance Urine Cloudy; Glucose Urine UA Negative (Negative); PH 5.5 (5.0-9.0); Specific Gravity - Urine >= 1.030 (1.005-1.025); UMIC TRIGGER UACC YES
[2025-09-04 10:58] LABS: Hematocrit 37.4 % (37.0-47.0); Hemoglobin 12.9 g/dl (12.0-16.0); Imm Gran Abs Auto 0.02 X10*3/uL (0.00-0.03); Imm Gran Pct Auto 0.3 % (0.0-0.4); Lymphocytes Absolute Auto 1.8 X10*3/uL (1.2-4.9); Mean Corpuscular HGB Conc 34.5 g/dl (31.0-35.0); Mean Corpuscular Hemoglobin 32.0 pg (27.0-33.0); Mean Corpuscular Volume 92.8 fL (80.0-98.0); NRBC Abs Auto 0.000 X10*3/uL (0.0-0.012); NRBC Pct Auto 0.0 /100WBC (0.0-0.2); Platelet Count 154 X10*3/uL (160-400); Red Blood Count 4.03 X10*6/uL (4.20-5.50); White Blood Count 6.5 X10*3/uL (4.8-10.8)
[2025-09-04 11:13] LABS: Alanine Aminotransferase 17 U/L (0-31); Albumin Level 4.5 g/dL (3.5-5.0); Alkaline Phosphatase 66 U/L (39-117); Anion Gap 9 (12-20); Aspartate Amino Transferase 27 U/L (5-31); Blood Urea Nitrogen 16 mg/dL (9-16); Calcium 9.5 mg/dL (8.4-10.2); Carbon Dioxide 27 mmol/L (22-29); Chloride 109 mmol/L (96-108); Creatinine Clr Calc Pharmacy 74.0; Estimated Glomerular Filt Rate > 60; Lipase 18 U/L (8-78); Potassium 4.7 mmol/L (3.3-5.1); Sodium 140 mmol/L (135-145); Total Protein 7.2 g/dL (6.5-8.0)
[2025-09-04 13:11] VITALS: BP 151/67; PULSE 58; RESP 20; TEMP 36.3; O2SAT 97
== END 2025-09-04 13:12 | disposition home or self-care (01) ==
PROVIDERS: Physician Assistant Medical; Emergency Provider Emergency Medicine; PCP Internal Medicine
DX: N39.0 Urinary tract infection, site not specified (principal); M54.42 Lumbago with sciatica, left side; I11.0 Hypertensive heart disease with heart failure; I50.22 Chronic systolic (congestive) heart failure; Z79.899 Other long term (current) drug therapy
CPT/HCPCS: 36415; 76775; 80048; 80076; 81001; 83690; 85025; 99282; 99284

== ENCOUNTER → 2025-09-04 10:28 | Outpatient (BNV) | payer OTHER, SELFPAY | PROVIDERS: PCP Internal Medicine; Visit Provider Radiology Diagnostic Radiology | DX: N28.1 Cyst of kidney, acquired (principal) | CPT/HCPCS: 76775 ==